=== PATIENT | male | born 1945 | race Caucasian/White ===

== ENCOUNTER → 2016-11-27 | Outpatient (REF) | payer OTHER ==
[~2016-11-27] MED LIST: /TAMS4CA PO; BACT800T5 PO; BENA25CA2 PO; CEPH500T PO; CIPR500T89 PO; CYCL1CAP2 PO; DEXA4TA PO; FE G325T PO; KEFL500C7 PO; MACR100C3 PO; MULTTAB4 PO; OCEA0.65; ONDA1TAB16 PO; PROC10TA PO; VITMTA PO; ferrous sulfate OR
[2016-11-27 13:20] LABS: IMMUNOGLOBULIN A 29.5 MG/DL (70-400); IMMUNOGLOBULIN G 472 MG/DL (681-1648); IMMUNOGLOBULIN M 328 MG/DL (40-230); TOTAL PROTEIN 6.2 GM/DL (6.4-8.2)
[2016-11-29 00:06] LABS: FREE KAPPA LIGHT CHAINS SERUM 8.11 mg/L (3.30-19.40); FREE LAMBDA LIGHT CHAINS SERUM 15.87 mg/L (5.71-26.30); KAPPA/LAMBDA RATIO SERUM 0.51 (0.26-1.65)
[2016-11-29 13:59] LABS: ALBUMIN 3.97 GM/DL (3.29-5.55); ALBUMIN % 64.1 % (55.8-66.1); GAMMA GLOBULIN % 8.9 % (11.1-18.8)
== END | disposition home or self-care (01) ==
LOC: M LAB REF 12:41
PROVIDERS: ATTEND Internal Medicine Medical Oncology
DX: C88.0 Waldenstrom macroglobulinemia (principal); D47.2 Monoclonal gammopathy; C85.90 Non-Hodgkin lymphoma, unspecified, unspecified site

== ENCOUNTER → 2017-01-03 | Outpatient (CLI) | payer OTHER ==
[2017-01-03 19:35] LABS: MEAN CORPUSCULAR HGB CONC 33.1 g/dl (32.0-36.5); MEAN CORPUSCULAR VOLUME 90.6 fl (80.0-96.0); RED CELL DISTRIBUTION WIDTH 13.3 % (11.5-14.5)
[2017-01-03 19:54] LABS: ANION GAP 7 MEQ/L (8-16); BLOOD UREA NITROGEN 12 MG/DL (7-18); CALCIUM LEVEL 8.8 MG/DL (8.8-10.2); CARBON DIOXIDE LEVEL 30 MEQ/L (21-32); CHLORIDE LEVEL 106 MEQ/L (98-107); CREATININE FOR GFR 0.87 MG/DL (0.70-1.30); GLOMERULAR FILTRATION RATE > 60.0 (>42); GLUCOSE, FASTING 123 MG/DL (83-110); POTASSIUM SERUM 4.5 MEQ/L (3.5-5.1); SODIUM LEVEL 143 MEQ/L (136-145)
== END | disposition home or self-care (01) ==
LOC: M SMT 14:55
PROVIDERS: ATTEND Urology
DX: Z85.51 Personal history of malignant neoplasm of bladder (principal)

== ENCOUNTER → 2017-01-15 | Outpatient (REF) | payer OTHER ==
[2017-01-15 13:52] LABS: IMMUNOGLOBULIN A 31.9 MG/DL (70-400); IMMUNOGLOBULIN G 513 MG/DL (681-1648); IMMUNOGLOBULIN M 333 MG/DL (40-230); TOTAL PROTEIN 6.6 GM/DL (6.4-8.2)
[2017-01-16 12:01] LABS: ALBUMIN % 62.9 % (55.8-66.1)
[2017-01-16 12:02] LABS: ALBUMIN 4.15 GM/DL (3.29-5.55); GAMMA GLOBULIN % 8.3 % (11.1-18.8)
[2017-01-17 00:07] LABS: FREE KAPPA LIGHT CHAINS SERUM 9.53 mg/L (3.30-19.40); FREE LAMBDA LIGHT CHAINS SERUM 18.03 mg/L (5.71-26.30); KAPPA/LAMBDA RATIO SERUM 0.53 (0.26-1.65)
== END ==
LOC: M LAB REF 12:32
PROVIDERS: ATTEND Internal Medicine Medical Oncology
DX: C88.0 Waldenstrom macroglobulinemia (principal); D63.0 Anemia in neoplastic disease

== ENCOUNTER → 2017-03-15 | Outpatient (REF) | payer OTHER | LOC: M LAB REF 12:22 | PROVIDERS: ATTEND Physician Assistant Medical | DX: J02.9 Acute pharyngitis, unspecified (principal) ==

== ENCOUNTER → 2017-04-18 | Outpatient (REF) | payer OTHER ==
[2017-04-18 15:11] LABS: IMMUNOGLOBULIN A 43.6 MG/DL (70-400); IMMUNOGLOBULIN G 768 MG/DL (681-1648); IMMUNOGLOBULIN M 318 MG/DL (40-230); TOTAL PROTEIN 7.3 GM/DL (6.4-8.2)
[2017-04-20 00:06] LABS: FREE KAPPA LIGHT CHAINS SERUM 11.85 mg/L (3.30-19.40); FREE LAMBDA LIGHT CHAINS SERUM 18.94 mg/L (5.71-26.30); KAPPA/LAMBDA RATIO SERUM 0.63 (0.26-1.65)
[2017-04-23 09:12] LABS: ALBUMIN 4.47 GM/DL (3.29-5.55); ALBUMIN % 61.3 % (55.8-66.1); GAMMA GLOBULIN % 11.6 % (11.1-18.8)
== END ==
LOC: M LAB REF 13:22
PROVIDERS: ATTEND Internal Medicine Medical Oncology
DX: C88.0 Waldenstrom macroglobulinemia (principal); C85.90 Non-Hodgkin lymphoma, unspecified, unspecified site; D47.2 Monoclonal gammopathy

== ENCOUNTER → 2017-04-30 | Outpatient (REF) | payer OTHER | LOC: M SFHCADAM 10:07 | PROVIDERS: ATTEND Physician Assistant Medical | DX: L02.91 Cutaneous abscess, unspecified (principal) ==

== ENCOUNTER → 2017-05-01 | Outpatient (CLI) | payer OTHER ==
[2017-05-01 13:47] LABS: ESTRADIOL < 19.0 PG/ML (<39.8)
[2017-05-01 15:37] LABS: ANION GAP 8 MEQ/L (8-16); BLOOD UREA NITROGEN 14 MG/DL (7-18); CALCIUM LEVEL 8.9 MG/DL (8.8-10.2); CARBON DIOXIDE LEVEL 27 MEQ/L (21-32); CHLORIDE LEVEL 105 MEQ/L (98-107); CREATININE FOR GFR 1.02 MG/DL (0.70-1.30); GLOMERULAR FILTRATION RATE > 60.0 (>42); GLUCOSE, FASTING 95 MG/DL (83-110); POTASSIUM SERUM 4.3 MEQ/L (3.5-5.1); SODIUM LEVEL 140 MEQ/L (136-145)
== END ==
LOC: M SMT 09:03
PROVIDERS: ATTEND Urology
DX: C61 Malignant neoplasm of prostate (principal)

== ENCOUNTER → 2017-07-23 | Outpatient (REF) | payer OTHER ==
[~2017-07-23] MED LIST changes: +KEFL500C17 PO; -KEFL500C7 PO; -MACR100C3 PO; +MACR100C43 PO; -ONDA1TAB16 PO; +ONDA8TAB7 PO
[2017-07-23 14:30] LABS: IMMUNOGLOBULIN A 42.3 MG/DL (70-400); IMMUNOGLOBULIN G 720 MG/DL (681-1648); IMMUNOGLOBULIN M 262 MG/DL (40-230); TOTAL PROTEIN 6.9 GM/DL (6.4-8.2)
[2017-07-24 13:20] LABS: ALBUMIN 4.35 GM/DL (3.29-5.55); GAMMA GLOBULIN % 12.3 % (11.1-18.8)
[2017-07-25 00:06] LABS: FREE KAPPA LIGHT CHAINS SERUM 7.9 mg/L (3.3-19.4); FREE LAMBDA LIGHT CHAINS SERUM 15.1 mg/L (5.7-26.3); KAPPA/LAMBDA RATIO SERUM 0.52 (0.26-1.65)
== END ==
LOC: M LAB REF 09:09
PROVIDERS: ATTEND Internal Medicine Medical Oncology
DX: C85.10 Unspecified B-cell lymphoma, unspecified site (principal); D47.2 Monoclonal gammopathy

== ENCOUNTER → 2017-08-07 | Outpatient (CLI) | payer OTHER ==
[2017-08-07 13:11] LABS: MEAN CORPUSCULAR HEMOGLOBIN 30.7 pg (27.0-33.0); MEAN CORPUSCULAR HGB CONC 35.7 g/dl (32.0-36.5); MEAN CORPUSCULAR VOLUME 86.1 fl (80.0-96.0); RED CELL DISTRIBUTION WIDTH 13.2 % (11.5-14.5); WHITE BLOOD COUNT 6.8 K/mm3 (4.0-10.0)
[2017-08-07 13:12] LABS: ANION GAP 5 MEQ/L (8-16); BLOOD UREA NITROGEN 11 MG/DL (7-18); CALCIUM LEVEL 8.7 MG/DL (8.8-10.2); CARBON DIOXIDE LEVEL 29 MEQ/L (21-32); CHLORIDE LEVEL 106 MEQ/L (98-107); CREATININE FOR GFR 0.94 MG/DL (0.70-1.30); GLOMERULAR FILTRATION RATE > 60.0 (>42); GLUCOSE, FASTING 103 MG/DL (83-110); POTASSIUM SERUM 4.2 MEQ/L (3.5-5.1); SODIUM LEVEL 140 MEQ/L (136-145)
== END ==
LOC: M SMT 10:44
PROVIDERS: ATTEND Urology
DX: C61 Malignant neoplasm of prostate (principal); Z85.51 Personal history of malignant neoplasm of bladder

== ENCOUNTER → 2017-08-22 | Outpatient (REF) | payer OTHER ==
[2017-08-22 12:56] LABS: BASO # 0.1 10^3/uL (0.0-0.2); BASO % 0.9 % (0.0-1.0); EOS # 0.3 10^3/uL (0.0-0.50); EOS % 4.1 % (0.0-3.0); IMMATURE GRANULOCYTE % 1.7 % (0-0); LYMPH # 1.9 10^3/uL (1.5-4.5); LYMPH % 27.2 % (24.0-44.0); MEAN CORPUSCULAR HEMOGLOBIN 29.1 pg (27.0-33.0); MEAN CORPUSCULAR HGB CONC 33.6 g/dl (32.0-36.5); MEAN CORPUSCULAR VOLUME 86.8 fl (80.0-96.0); MONO # 0.8 10^3/uL (0.0-0.8); MONO % 10.9 % (0.0-5.0); NEUTROPHILS # 3.9 10^3/uL (1.8-7.7); NEUTROPHILS % 55.2 % (36.0-66.0); PLATELET COUNT, AUTOMATED 228 10^3/uL (150-450); RED CELL DISTRIBUTION WIDTH 13.1 % (11.5-14.5)
[2017-08-22 14:11] LABS: ALBUMIN 3.8 GM/DL (3.2-5.2); ALBUMIN/GLOBULIN RATIO 1.41 (1.00-1.93); ALKALINE PHOSPHATASE 125 U/L (45-117); ALT/SGPT 45 U/L (12-78); ANION GAP 7 MEQ/L (8-16); AST/SGOT 20 U/L (15-37); BILIRUBIN,TOTAL 0.6 MG/DL (0.2-1.0); BLOOD UREA NITROGEN 16 MG/DL (7-18); CALCIUM LEVEL 9.3 MG/DL (8.8-10.2); CARBON DIOXIDE LEVEL 27 MEQ/L (21-32); CHLORIDE LEVEL 106 MEQ/L (98-107); CHOLESTEROL LEVEL 199 MG/DL (<200); CREATININE FOR GFR 1.06 MG/DL (0.70-1.30); GLOMERULAR FILTRATION RATE > 60.0 (>42); GLUCOSE, FASTING 101 MG/DL (83-110); POTASSIUM SERUM 4.7 MEQ/L (3.5-5.1); SODIUM LEVEL 140 MEQ/L (136-145); TOTAL PROTEIN 6.5 GM/DL (6.4-8.2); TRIGLYCERIDES LEVEL 173 MG/DL (<150)
== END ==
LOC: M SFHCADAM 08:03
PROVIDERS: ATTEND Physician Assistant Medical
DX: Z00.00 Encounter for general adult medical examination without abnormal findings (principal); C61 Malignant neoplasm of prostate; Z85.51 Personal history of malignant neoplasm of bladder; D50.9 Iron deficiency anemia, unspecified; Z20.5 Contact with and (suspected) exposure to viral hepatitis; Z79.899 Other long term (current) drug therapy

== ENCOUNTER → 2017-10-24 | Outpatient (REF) | payer OTHER ==
[2017-10-24 10:24] LABS: IMMUNOGLOBULIN A 46.6 MG/DL (70-400); IMMUNOGLOBULIN G 802 MG/DL (681-1648); IMMUNOGLOBULIN M 242 MG/DL (40-230); TOTAL PROTEIN 6.8 GM/DL (6.4-8.2)
[2017-10-26 00:08] LABS: FREE LAMBDA LIGHT CHAINS SERUM 15.9 mg/L (5.7-26.3); KAPPA/LAMBDA RATIO SERUM 0.63 (0.26-1.65)
[2017-10-28 13:54] LABS: ALBUMIN % 61.7 % (55.8-66.1)
[2017-10-28 13:55] LABS: GAMMA GLOBULIN % 12.5 % (11.1-18.8)
== END ==
LOC: M LAB REF 09:53
PROVIDERS: ATTEND Internal Medicine Medical Oncology
DX: D47.2 Monoclonal gammopathy (principal); C85.10 Unspecified B-cell lymphoma, unspecified site

== ENCOUNTER → 2017-11-13 | Outpatient (CLI) | payer OTHER ==
[2017-11-13 17:36] LABS: MEAN CORPUSCULAR HEMOGLOBIN 29.2 pg (27.0-33.0); MEAN CORPUSCULAR HGB CONC 33.4 g/dl (32.0-36.5); MEAN CORPUSCULAR VOLUME 87.4 fl (80.0-96.0); PLATELET COUNT, AUTOMATED 258 10^3/uL (150-450); WHITE BLOOD COUNT 7.6 10^3/uL (4.0-10.0)
[2017-11-13 18:08] LABS: ANION GAP 7 MEQ/L (8-16); BLOOD UREA NITROGEN 16 MG/DL (7-18); CALCIUM LEVEL 8.7 MG/DL (8.8-10.2); CARBON DIOXIDE LEVEL 29 MEQ/L (21-32); CHLORIDE LEVEL 105 MEQ/L (98-107); CREATININE FOR GFR 1.02 MG/DL (0.70-1.30); GLOMERULAR FILTRATION RATE > 60.0 (>42); GLUCOSE, FASTING 153 MG/DL (83-110); POTASSIUM SERUM 4.5 MEQ/L (3.5-5.1); SODIUM LEVEL 141 MEQ/L (136-145)
== END ==
LOC: M SMT 12:48
PROVIDERS: ATTEND Urology
DX: C61 Malignant neoplasm of prostate (principal); Z85.51 Personal history of malignant neoplasm of bladder

== ENCOUNTER → 2018-01-27 | Outpatient (REF) | payer OTHER ==
[2018-01-27 14:03] LABS: BASO # 0.1 10^3/uL (0.0-0.2); BASO % 1.1 % (0.0-1.0); EOS # 0.3 10^3/uL (0.0-0.50); EOS % 4.2 % (0.0-3.0); HEMATOCRIT 44.6 % (42.0-52.0); HEMOGLOBIN 14.9 g/dl (14.0-18.0); IMMATURE GRANULOCYTE % 1.4 % (0-3.0); LYMPH # 1.9 10^3/uL (1.5-4.5); LYMPH % 25.5 % (24.0-44.0); MEAN CORPUSCULAR HGB CONC 33.4 g/dl (32.0-36.5); MEAN CORPUSCULAR VOLUME 86.8 fl (80.0-96.0); MONO # 0.8 10^3/uL (0.0-0.8); MONO % 10.6 % (0.0-5.0); NEUTROPHILS # 4.4 10^3/uL (1.8-7.7); NEUTROPHILS % 57.2 % (36.0-66.0); PLATELET COUNT, AUTOMATED 218 10^3/uL (150-450); RED BLOOD COUNT 5.14 10^6/uL (4.30-6.10); RED CELL DISTRIBUTION WIDTH 13.2 % (11.5-14.5); WHITE BLOOD COUNT 7.6 10^3/uL (4.0-10.0)
[2018-01-27 14:41] LABS: ALBUMIN 3.8 GM/DL (3.2-5.2); ALBUMIN/GLOBULIN RATIO 1.23 (1.00-1.93); ALKALINE PHOSPHATASE 125 U/L (45-117); ALT/SGPT 35 U/L (12-78); ANION GAP 9 MEQ/L (8-16); AST/SGOT 17 U/L (7-37); BILIRUBIN,TOTAL 0.4 MG/DL (0.2-1.0); BLOOD UREA NITROGEN 12 MG/DL (7-18); CARBON DIOXIDE LEVEL 26 MEQ/L (21-32); CHLORIDE LEVEL 107 MEQ/L (98-107); CHOLESTEROL LEVEL 195 MG/DL (<200); CHOLESTEROL RISK RATIO 3.679 (<5); CREATININE FOR GFR 0.94 MG/DL (0.70-1.30); FERRITIN 17 NG/ML (26-388); GLOMERULAR FILTRATION RATE > 60.0 (>42); GLUCOSE, FASTING 97 MG/DL (70-100); HDL CHOLESTEROL 53 MG/DL (>40); IRON (FE) 61 UG/DL (65-175); LDL CHOLESTEROL 115.8 MG/DL (<100); NON-HDL-C 142 MG/DL; POTASSIUM SERUM 4.5 MEQ/L (3.5-5.1); PROSTATIC SPECIFIC AG MONITOR 0.01 NG/ML (< 4.0); SODIUM LEVEL 142 MEQ/L (136-145); TOTAL IRON BINDING CAPACITY 359 UG/DL (250-450); TOTAL PROTEIN 6.9 GM/DL (6.4-8.2); TRIGLYCERIDES LEVEL 131 MG/DL (<150)
[2018-01-27 14:42] LABS: TOTAL 25(OH) VITAMIN D 28.6 NG/ML (30.0-100.0)
== END ==
LOC: M SFHCADAM 08:18
DX: Z85.51 Personal history of malignant neoplasm of bladder (principal); Z86.010 Personal history of colon polyps; D50.9 Iron deficiency anemia, unspecified; C61 Malignant neoplasm of prostate; Z79.899 Other long term (current) drug therapy
CPT/HCPCS: 83550

== ENCOUNTER → 2018-02-06 | Outpatient (REF) | payer OTHER ==
[2018-02-06 14:30] LABS: IMMUNOGLOBULIN A 61.9 MG/DL (70-400); IMMUNOGLOBULIN G 735 MG/DL (681-1648); IMMUNOGLOBULIN M 244 MG/DL (40-230); TOTAL PROTEIN 7.1 GM/DL (6.4-8.2)
[2018-02-07 13:52] LABS: ALBUMIN 4.22 GM/DL (3.29-5.55); ALBUMIN % 59.4 % (55.8-66.1); ALPHA-1-GLOBULIN % 3.9 % (2.9-4.9); ALPHA-1-GLOBULINS 0.28 GM/DL (0.17-0.41); ALPHA-2-GLOBULINS 0.84 GM/DL (0.42-0.99); ALPHA-2-GLOBULINS % 11.8 % (7.1-11.8); BETA-1-GLOBULINS % 7.1 % (4.7-7.2); BETA-2-GLOBULINS 0.38 GM/DL (0.19-0.55); BETA-2-GLOBULINS % 5.4 % (3.2-6.5); GAMMA GLOBULIN % 12.4 % (11.1-18.8); GAMMA GLOBULINS 0.88 GM/DL (0.65-1.58)
[2018-02-08 00:06] LABS: FREE KAPPA LIGHT CHAINS SERUM 11.4 mg/L (3.3-19.4); FREE LAMBDA LIGHT CHAINS SERUM 16.1 mg/L (5.7-26.3); KAPPA/LAMBDA RATIO SERUM 0.71 (0.26-1.65)
== END ==
LOC: M LAB REF 13:43
DX: C80.0 Disseminated malignant neoplasm, unspecified (principal)
CPT/HCPCS: 84165

== ENCOUNTER 2018-04-11 07:26 | Day surgery (SDC) | payer OTHER ==
[2018-04-11] MEDS ORDERED: NS 1,000 ML IV (08:00)
[2018-04-11] MEDS ORDERED: PROPOFOL 200 MG/20 ML VIAL As Ordered ×2 (08:09)
[2018-04-11] MEDS ORDERED: LIDOCAINE 2% INJ 100 MG/5 ML SDV (FOR ANES.) As Ordered (08:10)
[2018-04-11] MEDS ORDERED: GLYCOPYRROLATE INJ 0.2 MG/ML 2 ML VIAL As Ordered (08:35)
[2018-04-11] MEDS ORDERED: ATROPINE SULF 0.4 MG/ML 1ML VIAL (J0461) As Ordered (08:37)
== END 2018-04-11 09:31 | disposition home or self-care (01) ==
LOC: M OPP 07:26
DX: Z12.11 Encounter for screening for malignant neoplasm of colon (principal); Z86.010 Personal history of colon polyps; D12.3 Benign neoplasm of transverse colon; D12.2 Benign neoplasm of ascending colon; K57.30 Diverticulosis of large intestine without perforation or abscess without bleeding; K64.8 Other hemorrhoids; Q43.8 Other specified congenital malformations of intestine; C85.10 Unspecified B-cell lymphoma, unspecified site; C90.00 Multiple myeloma not having achieved remission; Z85.51 Personal history of malignant neoplasm of bladder; Z86.14 Personal history of Methicillin resistant Staphylococcus aureus infection; N40.1 Benign prostatic hyperplasia with lower urinary tract symptoms; Z92.21 Personal history of antineoplastic chemotherapy; Z88.1 Allergy status to other antibiotic agents; Z88.0 Allergy status to penicillin
CPT/HCPCS: 45385

== ENCOUNTER → 2018-05-12 | Outpatient (CLI) | payer OTHER ==
[2018-05-12 13:03] LABS: HEMATOCRIT 43.7 % (42.0-52.0); HEMOGLOBIN 14.4 g/dl (13.5-17.5); MEAN CORPUSCULAR HEMOGLOBIN 28.6 pg (27.0-33.0); MEAN CORPUSCULAR VOLUME 86.7 fl (80.0-96.0); PLATELET COUNT, AUTOMATED 232 10^3/uL (150-450); RED BLOOD COUNT 5.04 10^6/uL (4.30-6.10); RED CELL DISTRIBUTION WIDTH 13.4 % (11.5-14.5); WHITE BLOOD COUNT 7.6 10^3/uL (4.0-10.0)
[2018-05-12 16:01] LABS: ANION GAP 7 MEQ/L (8-16); BLOOD UREA NITROGEN 15 MG/DL (7-18); CALCIUM LEVEL 9.2 MG/DL (8.8-10.2); CARBON DIOXIDE LEVEL 27 MEQ/L (21-32); CHLORIDE LEVEL 107 MEQ/L (98-107); CREATININE FOR GFR 0.95 MG/DL (0.70-1.30); GLOMERULAR FILTRATION RATE > 60.0 (>42); GLUCOSE, FASTING 103 MG/DL (70-100); POTASSIUM SERUM 4.8 MEQ/L (3.5-5.1); PROSTATIC SPECIFIC AG MONITOR < 0.01 NG/ML (< 4.0); SODIUM LEVEL 141 MEQ/L (136-145)
== END ==
LOC: M SMT 10:59
DX: Z85.51 Personal history of malignant neoplasm of bladder (principal); C61 Malignant neoplasm of prostate
CPT/HCPCS: 84153

== ENCOUNTER → 2018-06-02 | Outpatient (REF) | payer OTHER ==
[2018-06-02 14:32] LABS: IMMUNOGLOBULIN G 754 MG/DL (681-1648); IMMUNOGLOBULIN M 222 MG/DL (40-230); TOTAL PROTEIN 6.9 GM/DL (6.4-8.2)
[2018-06-03 11:40] LABS: ALBUMIN 4.28 GM/DL (3.29-5.55); ALPHA-1-GLOBULINS 0.23 GM/DL (0.17-0.41)
[2018-06-03 11:41] LABS: ALPHA-1-GLOBULIN % 3.4 % (2.9-4.9); ALPHA-2-GLOBULINS 0.73 GM/DL (0.42-0.99); ALPHA-2-GLOBULINS % 10.6 % (7.1-11.8); BETA-1-GLOBULINS 0.44 GM/DL (0.28-0.60); BETA-1-GLOBULINS % 6.4 % (4.7-7.2); BETA-2-GLOBULINS 0.35 GM/DL (0.19-0.55); GAMMA GLOBULIN % 12.6 % (11.1-18.8); GAMMA GLOBULINS 0.87 GM/DL (0.65-1.58)
[2018-06-04 00:08] LABS: FREE KAPPA LIGHT CHAINS SERUM 10.8 mg/L (3.3-19.4); FREE LAMBDA LIGHT CHAINS SERUM 14.4 mg/L (5.7-26.3); KAPPA/LAMBDA RATIO SERUM 0.75 (0.26-1.65)
== END ==
LOC: M LAB REF 13:39
DX: C88.0 Waldenstrom macroglobulinemia (principal)
CPT/HCPCS: 84165

== ENCOUNTER → 2018-08-09 | Outpatient (REF) | payer OTHER ==
[2018-08-09 11:07] LABS: BASO # 0.1 10^3/uL (0.0-0.2); BASO % 1.2 % (0.0-1.0); EOS # 0.4 10^3/uL (0.0-0.50); EOS % 4.7 % (0.0-3.0); IMMATURE GRANULOCYTE % 2.1 % (0-3.0); LYMPH # 1.8 10^3/uL (1.5-4.5); LYMPH % 24.4 % (24.0-44.0); MEAN CORPUSCULAR HGB CONC 33.3 g/dl (32.0-36.5); MEAN CORPUSCULAR VOLUME 86.9 fl (80.0-96.0); MONO # 0.6 10^3/uL (0.0-0.8); MONO % 7.6 % (0.0-5.0); NEUTROPHILS # 4.5 10^3/uL (1.8-7.7); PLATELET COUNT, AUTOMATED 221 10^3/uL (150-450); RED BLOOD COUNT 5.18 10^6/uL (4.30-6.10); RED CELL DISTRIBUTION WIDTH 13.2 % (11.5-14.5); WHITE BLOOD COUNT 7.5 10^3/uL (4.0-10.0)
[2018-08-09 11:21] LABS: ALBUMIN/GLOBULIN RATIO 1.29 (1.00-1.93); ALKALINE PHOSPHATASE 127 U/L (45-117); ALT/SGPT 42 U/L (12-78); ANION GAP 9 MEQ/L (8-16); AST/SGOT 18 U/L (7-37); BILIRUBIN,TOTAL 0.5 MG/DL (0.2-1.0); BLOOD UREA NITROGEN 13 MG/DL (7-18); CALCIUM LEVEL 9.3 MG/DL (8.8-10.2); CARBON DIOXIDE LEVEL 25 MEQ/L (21-32); CHLORIDE LEVEL 106 MEQ/L (98-107); CHOLESTEROL LEVEL 194 MG/DL (<200); CHOLESTEROL RISK RATIO 3.803 (<5); CREATININE FOR GFR 1.18 MG/DL (0.70-1.30); FERRITIN 17 NG/ML (26-388); GLOMERULAR FILTRATION RATE > 60.0 (>42); GLUCOSE, FASTING 132 MG/DL (70-100); HDL CHOLESTEROL 51 MG/DL (>40); IRON (FE) 139 UG/DL (65-175); LDL CHOLESTEROL 104 MG/DL (<100); NON-HDL-C 143 MG/DL; PERCENT SATURATION 38.5 % (19.7-50.0); POTASSIUM SERUM 4.6 MEQ/L (3.5-5.1); PROSTATIC SPECIFIC AG MONITOR 0.02 NG/ML (< 4.0); SODIUM LEVEL 140 MEQ/L (136-145); TOTAL IRON BINDING CAPACITY 361 UG/DL (250-450); TOTAL PROTEIN 7.1 GM/DL (6.4-8.2); TRIGLYCERIDES LEVEL 196 MG/DL (<150)
== END ==
LOC: M SFHCADAM 08:40
DX: D50.9 Iron deficiency anemia, unspecified (principal); Z85.51 Personal history of malignant neoplasm of bladder; Z86.010 Personal history of colon polyps; C61 Malignant neoplasm of prostate
CPT/HCPCS: 83550

== ENCOUNTER → 2018-11-17 | Outpatient (CLI) | payer OTHER ==
[~2018-11-17] MED LIST changes: +CLAR10CA3 PO; -PROC10TA PO; +PROC10TA4 PO
[2018-11-17 10:17] LABS: HEMATOCRIT 44.1 % (42.0-52.0); HEMOGLOBIN 14.9 g/dl (13.5-17.5); MEAN CORPUSCULAR HEMOGLOBIN 29.4 pg (27.0-33.0); MEAN CORPUSCULAR HGB CONC 33.8 g/dl (32.0-36.5); MEAN CORPUSCULAR VOLUME 87.2 fl (80.0-96.0); PLATELET COUNT, AUTOMATED 253 10^3/uL (150-450); RED BLOOD COUNT 5.06 10^6/uL (4.30-6.10); WHITE BLOOD COUNT 9.1 10^3/uL (4.0-10.0)
[2018-11-17 10:43] LABS: BLOOD UREA NITROGEN 15 MG/DL (7-18); CALCIUM LEVEL 8.8 MG/DL (8.8-10.2); CARBON DIOXIDE LEVEL 29 MEQ/L (21-32); CHLORIDE LEVEL 106 MEQ/L (98-107); CREATININE FOR GFR 1.05 MG/DL (0.70-1.30); GLOMERULAR FILTRATION RATE > 60.0 (>42); GLUCOSE, FASTING 113 MG/DL (70-100); POTASSIUM SERUM 4.2 MEQ/L (3.5-5.1); PROSTATIC SPECIFIC AG MONITOR 0.02 NG/ML (< 4.00); SODIUM LEVEL 140 MEQ/L (136-145)
== END ==
LOC: M LAB 09:46
PROVIDERS: ATTEND Nurse Practitioner Women's Health
DX: C61 Malignant neoplasm of prostate (principal); Z85.51 Personal history of malignant neoplasm of bladder

== ENCOUNTER → 2018-11-20 | Outpatient (REF) | payer OTHER ==
[2018-11-20 13:09] LABS: AMORPHOUS SEDIMENT MODERATE (NEGATIVE); APPEARANCE, URINE CLOUDY (CLEAR); BACTERIA, URINE AUTO 1+ (NEGATIVE); BILIRUBIN, URINE AUTO NEGATIVE (NEGATIVE); BLOOD, URINE BLOOD 2+ (NEGATIVE); COLOR, URINE YELLOW (YELLOW); GLUCOSE, URINE (UA) AUTO NEGATIVE (NEGATIVE); KETONE, URINE AUTO NEGATIVE (NEGATIVE); LEUKOCYTE ESTERASE, URINE AUTO 3+ (NEGATIVE); NITRITE, URINE AUTO POSITIVE (NEGATIVE); PROTEIN, URINE AUTO NEGATIVE (NEGATIVE); RBC, URINE AUTO 3 /HPF (0-3); SPECIFIC GRAVITY URINE AUTO 1.009 (1.002-1.035); SQUAMOUS EPITHELIAL CELL UR AU 1 /HPF (0-6); UROBILINOGEN, URINE AUTO 0.2 mg/dL (0.0-2.0); WBC, URINE AUTO 21 /HPF (0-3)
== END ==
LOC: M SMT 12:19
PROVIDERS: ATTEND Nurse Practitioner Women's Health
DX: Z85.51 Personal history of malignant neoplasm of bladder (principal)
CPT/HCPCS: 81001; 88108; G0463

== ENCOUNTER 2019-05-18 15:25 | Inpatient (IN) | payer MEDICARE, OTHER ==
[~2019-05-18] VITALS: Ht 182.9 cm; Wt 89.2 kg
[~2019-05-18 15:25] MED LIST changes: -/TAMS4CA PO; +FLOM0.4C39 PO
[2019-05-18] MEDS ORDERED: NS 1,000 ML IV SCH (16:15)
[2019-05-18] MEDS ORDERED: ONDANSETRON 4MG/2ML VIAL (J2405) IV ONE (16:15)
[2019-05-18] MEDS: MORPHINE 4 MG/ML 1ML VIAL/SYRINGE (J2270) IV PRN ×2 (17:09→18:56)
[2019-05-18] MEDS: GASTROGRAFIN SOLUTION 30ML PO SCH ×2 (17:09→17:13)
[2019-05-18 17:53] LABS: BASO # 0.1 10^3/uL (0.0-0.2); BASO % 0.2 % (0.0-1.0); HEMATOCRIT 44.6 % (42.0-52.0); HEMOGLOBIN 15.2 g/dl (13.5-17.5); LYMPH # 0.8 10^3/uL (1.5-4.5); LYMPH % 3.5 % (24.0-44.0); MEAN CORPUSCULAR HEMOGLOBIN 30.1 pg (27.0-33.0); MEAN CORPUSCULAR HGB CONC 34.1 g/dl (32.0-36.5); MEAN CORPUSCULAR VOLUME 88.3 fl (80.0-96.0); MONO # 1.3 10^3/uL (0.0-0.8); MONO % 6.1 % (0.0-5.0); NEUTROPHILS # 18.9 10^3/uL (1.8-7.7); NEUTROPHILS % 89.6 % (36.0-66.0); PLATELET COUNT, AUTOMATED 220 10^3/uL (150-450); RED BLOOD COUNT 5.05 10^6/uL (4.30-6.10); WHITE BLOOD COUNT 21.2 10^3/uL (4.0-10.0)
[2019-05-18] MEDS ORDERED: ISOVUE-370 76% 100ML VIAL (Q9967) As Ordered ONE (17:55)
[2019-05-18 18:16] LABS: ALBUMIN 3.7 GM/DL (3.2-5.2); BILIRUBIN,DIRECT 0.1 MG/DL (0.0-0.2); BILIRUBIN,TOTAL 0.6 MG/DL (0.2-1.0); TOTAL PROTEIN 7.8 GM/DL (6.4-8.2)
[2019-05-18] MEDS ORDERED: metroNIDAZOLE 500 MG in APPROPRIATE DILUENT 1 EA IV ONE (18:45)
[2019-05-18] MEDS ORDERED: cefTRIAXone SOD 1 GM in D5W MINI-BAG PLUS 50 ML IV ONE (18:45)
--- NOTE | 2019-05-18 19:04 | REP ---
Clinical: Acute right lower quadrant pain. Technique: Axial contrast enhanced images from the lung bases to the pubic symphysis using oral (per protocol) and 100 ml Isovue 370 intravenous contrast material with coronal and sagittal re-formations. Comparison: 06/27/2016. Findings: The gallbladder appears distended and mild pericholecystic fluid is appreciated along with evidence for mild biliary ductal dilatation. Findings are consistent with acute cholecystitis and should be correlated clinically. Liver, spleen, pancreas, and bilateral adrenal glands are normal. The kidneys are without evidence for acute process. The patient is noted to be status post bladder resection with ileal conduit via the right anterior abdominal wall and no associated hydronephrosis or perinephric stranding is appreciated. Evaluation of the enteric system is without obstruction or acute inflammatory process. Scattered colonic diverticula noted without acute diverticulitis. Normal appendix identified in the right lower quadrant. No pelvic fluid. No ascites. No free air. No significant adenopathy. Abdominal aorta without aneurysm or dissection. Osseous structures demonstrate age-related changes without focal abnormality. Lung bases suggest mild bibasilar atelectasis. Visualized heart and pericardium normal. Small hiatal hernia at the gastroesophageal junction is appreciated along with mild mucosal thickening to the visualized distal esophagus which may warrant endoscopy. Impression: 1. Acute cholecystitis is suggested including mild biliary ductal dilatation and pericholecystic inflammatory stranding. 2. Evidence of prior bladder resection with ileal conduit and no obvious acute renal findings. 3. Mild bibasilar atelectasis. 4. Small hiatal hernia and mild thickening to the visualized distal esophagus may warrant outpatient GI consultation. 5. Scattered colonic diverticula. Normal appendix. 6. No ascites, or adenopathy. Electronically Signed by Srikanth Curtis MD 05/18/2019 06:55 P
[2019-05-18] MEDS ORDERED: ERTAPENEM SODIUM 1 GM in NS MINI-BAG PLUS 50 ML IV ONE (19:15)
[2019-05-18] MEDS ORDERED: ACETAMINOPHEN TAB 650MG DOSE (2X325MG) PO PRN (22:30)
[2019-05-18] MEDS ORDERED: ONDANSETRON 4MG/2ML VIAL (J2405) IV PRN (22:30)
[2019-05-18] MEDS ORDERED: MORPHINE 4 MG/ML 1ML VIAL/SYRINGE (J2270) IV PRN (22:30)
[2019-05-19] VITALS (10 sets, daily range): BP systolic 114–163; BP diastolic 53–73; O2SAT 96
[2019-05-19] MEDS: LR 1,000 ML IV SCH ×2 (00:13→06:17)
[2019-05-19] MEDS: MORPHINE 4 MG/ML 1ML VIAL/SYRINGE (J2270) IV PRN ×2 (00:31→06:17)
[2019-05-19] MEDS: metroNIDAZOLE 500 MG in APPROPRIATE DILUENT 1 EA IV SCH ×4 (00:32→18:03)
--- NOTE | 2019-05-19 05:25 | HPE ---
DATE OF ADMISSION: 05/18/2019 REASON FOR ADMISSION: Acute cholecystitis and cholelithiasis. HISTORY OF PRESENT ILLNESS: The patient is a pleasant 73-year-old man who presented to the emergency department on the afternoon of May 18 complaining of abdominal pain. He reported that he had developed some discomfort in the epigastrium at about 6 o'clock in the morning on the . He has a known history of gallstones. His discomfort worsened during the course of the morning and became quite severe in the right subcostal area and he denied any significant nausea. He reported that he had known gallstones for some years which had been discovered incidentally while doing work up for his bladder cancer. He reports a strong family history of cholelithiasis and problems with several members of his family having had a cholecystectomy. He presented to the emergency department with his pain and was found to have some tenderness in the right lateral abdomen. Initially the emergency room (ER) physician reported that he was thinking more along the lines of appendicitis but a CT scan was obtained that showed marked inflammation and distension of the gallbladder. I was consulted and the patient is now being admitted for cholelithiasis with acute cholecystitis. ALLERGIES: Allergies are reported to PENICILLINS which lead to face swelling and CIPROFLOXACIN which leads to rash and itching. MEDICATIONS: The patient only is taking: - Claritin - multivitamin. PAST SURGICAL HISTORY: The patient has undergone bilateral inguinal hernia repairs many years ago. He had undergone several limited resections of bladder cancer cystoscopically. He subsequently underwent a cystectomy with the prostate in 2016. This was done robotically by Dr. Rivera. PAST MEDICAL HISTORY: Significant for: 1. History of cystoprostatectomy for bladder cancer. 2. He has a ileal conduit for urinary diversion. 3. He reports a history of malignant lymphoma that was diagnosed some six months after his bladder excision in 2016. FAMILY HISTORY: Family history is significant only for the multiple family members with history of gallstones. SOCIAL HISTORY: The patient is not smoking and denies significant alcohol intake. REVIEW OF SYSTEMS: Review of systems shows no history of chest pain or palpitations. He denies cough or wheezing. He has not had diarrhea or constipation and denies any history of bleeding. The ileal conduit has been working well. PHYSICAL EXAMINATION: The patient is alert and oriented. He was lying quietly on his side on the hospital stretcher when I went to see him. HEENT: Sclerae are anicteric. Skin: Skin is warm and dry. Mucous membranes are moist. Neck: Supple. Heart: Exam shows a regular rhythm. Lungs: The lungs are generally clear. Abdomen: He has a ileal conduit ending in the right upper quadrant and the bag contains a moderate amount of urine. The abdomen is mildly obese. He has some tenderness along the right subcostal area between the rib edge and the urostomy site. Extremities: Examination shows palpable radial and pedal pulses. LABORATORY STUDIES: White count of 21,000 with a differential showing 90% neutrophils, 4% lymphocytes and 6% monocytes. Hemoglobin 15 with a hematocrit of 45 and platelet count is 220,000. Chemistry profile showed a lactic acid 2.1. Sodium was 138, potassium 3.9, chloride 101, CO2 of 23, BUN of 11, creatinine 0.9 and a glucose of 139. His liver function tests are normal. The lipase that is low at 61. IMAGING STUDIES: The patient had a CT scan of the abdomen and pelvis. This revealed a distended gallbladder with some pericholecystic fluid and gallbladder wall thickening. He has his ileal conduit noted in the right upper quadrant with absence of the bladder and prostate. IMPRESSION: 1. Cholelithiasis with acute cholecystitis. 2. Status post cystoprostatectomy. PLAN: The patient will be admitted and started on antibiotic coverage. He will require urgent cholecystectomy and I will anticipate adding him onto the schedule for tomorrow May 19. He will be kept nothing by mouth for now and will receive some IV fluids. He was counseled regarding the plan of care and desires to proceed as I have outlined it.
[2019-05-19 06:53] LABS: BASO # 0.1 10^3/uL (0.0-0.2); BASO % 0.2 % (0.0-1.0); HEMATOCRIT 39.5 % (42.0-52.0); HEMOGLOBIN 13.4 g/dl (13.5-17.5); LYMPH # 1.1 10^3/uL (1.5-4.5); LYMPH % 5.3 % (24.0-44.0); MEAN CORPUSCULAR HEMOGLOBIN 29.6 pg (27.0-33.0); MEAN CORPUSCULAR HGB CONC 33.9 g/dl (32.0-36.5); MEAN CORPUSCULAR VOLUME 87.4 fl (80.0-96.0); MONO # 1.5 10^3/uL (0.0-0.8); MONO % 7.3 % (0.0-5.0); NEUTROPHILS # 18.1 10^3/uL (1.8-7.7); NEUTROPHILS % 86.3 % (36.0-66.0); PLATELET COUNT, AUTOMATED 211 10^3/uL (150-450); RED BLOOD COUNT 4.52 10^6/uL (4.30-6.10)
[2019-05-19] MEDS ORDERED: dexameTHASONE 4 MG/ML 1ML VIAL (J1100) As Ordered ONE (07:13)
[2019-05-19] MEDS ORDERED: LIDOCAINE 2% INJ 100 MG/5 ML SDV (FOR ANES.) As Ordered ONE (07:13)
[2019-05-19] MEDS ORDERED: ONDANSETRON 4MG/2ML VIAL (J2405) As Ordered ONE (07:13)
[2019-05-19] MEDS ORDERED: PROPOFOL 200 MG/20 ML VIAL As Ordered ONE (07:13)
[2019-05-19] MEDS ORDERED: ROCURONIUM BROMIDE 50 MG/5 ML VIAL As Ordered ONE (07:14)
[2019-05-19] MEDS ORDERED: MIDAZOLAM INJ 2 MG/2 ML VIAL (J2250) As Ordered ONE (07:16)
[2019-05-19] MEDS ORDERED: fentaNYL 100 MCG/2 ML INJECTION (J3010) As Ordered ONE ×3 (07:16→10:07)
[2019-05-19] MEDS ORDERED: BUPIVACAINE HCL 0.25% 30 ML VIAL As Ordered ONE (07:19)
[2019-05-19 07:21] LABS: ALT/SGPT 41 U/L (12-78); BILIRUBIN,TOTAL 0.7 MG/DL (0.2-1.0); BLOOD UREA NITROGEN 15 MG/DL (7-18); CALCIUM LEVEL 8.8 MG/DL (8.8-10.2); CARBON DIOXIDE LEVEL 26 MEQ/L (21-32); CHLORIDE LEVEL 107 MEQ/L (98-107); CREATININE FOR GFR 1.09 MG/DL (0.70-1.30); GLOMERULAR FILTRATION RATE > 60.0 (>42); GLUCOSE, FASTING 154 MG/DL (70-100); POTASSIUM SERUM 3.9 MEQ/L (3.5-5.1); SODIUM LEVEL 139 MEQ/L (136-145); TOTAL PROTEIN 6.7 GM/DL (6.4-8.2)
[2019-05-19] MEDS ORDERED: KETOROLAC 60 MG/2 ML VIAL (J1885) As Ordered ONE (07:47)
[2019-05-19] MEDS ORDERED: PANTOPRAZOLE 40MG INJ (PROTONIX) (C9113) IV SCH (09:00)
[2019-05-19] MEDS ORDERED: hydrALAZINE INJ 20 MG/ML VIAL As Ordered ONE (09:38)
[2019-05-19] MEDS ORDERED: SUGAMMADEX SODIUM 500 MG/5 ML VIAL (BRIDION) As Ordered ONE (10:04)
[2019-05-19] MEDS ORDERED: ACETAMINOPHEN 1000MG 100ML IV BTL (OFIRMEV) (J0131 PER 10MG) As Ordered ONE (10:22)
[2019-05-19] MEDS ORDERED: fentaNYL 100 MCG/2 ML INJECTION (J3010) IV PRN (11:30)
[2019-05-19] MEDS ORDERED: MEPERIDINE INJ 25 MG/ML VIAL (J2175) IV PRN (11:30)
[2019-05-19] MEDS ORDERED: PERCOCET 5MG/325MG TAB PO PRN (11:30)
[2019-05-19] MEDS ORDERED: METOCLOPRAMIDE INJ 10MG/2ML VIAL (J2765) IV PRN (11:30)
[2019-05-19] MEDS ORDERED: LR 1,000 ML IV SCH ×2 (11:30→14:30)
[2019-05-19] MEDS ORDERED: ONDANSETRON 4MG/2ML VIAL (J2405) IV PRN (11:30)
[2019-05-19] MEDS ORDERED: ALBUTEROL SULFATE 2.5 MG/0.5 ML INH NEB SOLN As Ordered ONE (11:59)
[2019-05-19] MEDS ORDERED: NORCO, ANEXSIA 5/325MG TABLET (HYDROcodone/ACETAMINOPHEN) PO PRN (12:00)
[2019-05-19] MEDS ORDERED: LORATADINE 10 MG TAB PO PRN (12:00)
[2019-05-19] MEDS ORDERED: ALBUTEROL SULFATE 2.5 MG/0.5 ML INH NEB SOLN NEB ONE (12:30)
[2019-05-19] MEDS ORDERED: IPRATROPIUM 0.5MG/ALBUTEROL 2.5MG INH SOL UD 3ML (DUONEB)(J7620) NEB ONE (12:30)
[2019-05-19] MEDS ORDERED: METOCLOPRAMIDE INJ 10MG/2ML VIAL (J2765) As Ordered ONE (13:42)
[2019-05-19] MEDS ORDERED: ERTAPENEM SODIUM 1 GM in NS MINI-BAG PLUS 50 ML IV SCH (20:00)
[2019-05-19] MEDS ORDERED: MULTIVITAMINS/MINERALS THERAP 1 TAB PO SCH (21:00)
[2019-05-20] MEDS: metroNIDAZOLE 500 MG in APPROPRIATE DILUENT 1 EA IV SCH ×2 (00:13→06:02)
[2019-05-20 02:00] VITALS: BP 126/58
[2019-05-20 06:00] VITALS: BP 141/66
[2019-05-20 06:51] LABS: BASO % 0.2 % (0.0-1.0); EOS % 0.1 % (0.0-3.0); HEMATOCRIT 35.4 % (42.0-52.0); HEMOGLOBIN 11.6 g/dl (13.5-17.5); LYMPH % 7.6 % (24.0-44.0); MEAN CORPUSCULAR HEMOGLOBIN 28.8 pg (27.0-33.0); MEAN CORPUSCULAR HGB CONC 32.8 g/dl (32.0-36.5); MEAN CORPUSCULAR VOLUME 87.8 fl (80.0-96.0); MONO # 0.8 10^3/uL (0.0-0.8); MONO % 6.1 % (0.0-5.0); NEUTROPHILS # 11.1 10^3/uL (1.8-7.7); NEUTROPHILS % 85.2 % (36.0-66.0); PLATELET COUNT, AUTOMATED 176 10^3/uL (150-450); RED BLOOD COUNT 4.03 10^6/uL (4.30-6.10)
[2019-05-20 07:12] LABS: BLOOD UREA NITROGEN 19 MG/DL (7-18); CALCIUM LEVEL 8.3 MG/DL (8.8-10.2); CARBON DIOXIDE LEVEL 29 MEQ/L (21-32); CHLORIDE LEVEL 108 MEQ/L (98-107); CREATININE FOR GFR 1.11 MG/DL (0.70-1.30); GLOMERULAR FILTRATION RATE > 60.0 (>42); GLUCOSE, FASTING 127 MG/DL (70-100); POTASSIUM SERUM 3.7 MEQ/L (3.5-5.1); SODIUM LEVEL 141 MEQ/L (136-145)
[2019-05-20] MEDS ORDERED: HYDR-4571 PO (08:50)
[2019-05-20] MEDS ORDERED: CLIN150C14 PO (08:50)
--- NOTE | 2019-05-21 08:23 | IPN ---
DATE: 05/20/2019 HISTORY: The patient is now postop day postop day #1 from laparoscopic cholecystectomy for severe acute cholecystitis. A Lalo drain was left in the gallbladder bed postop. He has been feeling much better since surgery. Vital signs show that he has been afebrile since surgery. His pulse is in the 60s to 80s. Blood pressure is normal. Intake and output show that he had 2100 mL in yesterday with 925 out. He had 55 mL out in his drain and 40 mL out this morning. PHYSICAL EXAMINATION: The patient is alert and oriented. He appears quite comfortable. Skin is warm and dry. Heart exam shows a regular rhythm. The lungs are clear. The abdomen is soft. His dressings are dry and intact. The drain site is clean with a small amount of serosanguineous fluid in the tubing and bulb. His urostomy is functioning well. The abdomen is without undue tenderness. LABORATORY STUDIES: Today show a white count which is come down to 13,000 with a differential showing 85% neutrophils, 8% lymphocytes, 6% monocytes. Hemoglobin is 12 with a hematocrit of 35 and platelet count is 176,000. Chemistry profile shows normal electrolytes with a BUN of 19, creatinine of 1.1 and glucose of 127. Microbiology: He has a preliminary blood culture from his evaluation in the emergency department, which is growing gram-positive cocci in pairs, chains and clusters. Further identification and antibiotic testing is pending. IMPRESSION: The patient is doing very well 1 day postop from his laparoscopic cholecystectomy. His drain has minimal serosanguineous fluid. He is feeling quite comfortable and has taken only one prescription pain reliever since surgery. He does have a preliminary blood culture from the growing gram-positive cocci but has been afebrile and has no obvious signs of infection at this time. PLAN: The patient will be discharged home. He will be provided a prescription for an antibiotic to take another 5-7 days after discharge just to address the potentially positive blood culture. He will take the drain home with him and he understands how to empty this and measure the output. I will plan on having him follow up in my office on Saturday the for removal of his drain and he will then follow up later in 10 days or so for a routine postop visit. He was counseled regarding diet, activity, medications and followup. He understands the plan will be discharge home today.
--- NOTE | 2019-05-21 23:14 | RO ---
DATE OF PROCEDURE: 05/19/2019 PREOPERATIVE DIAGNOSIS: Cholelithiasis with acute cholecystitis. POSTOPERATIVE DIAGNOSIS: Cholelithiasis with acute and possibly gangrenous cholecystitis. PROCEDURE PERFORMED: Laparoscopic cholecystectomy with lysis of adhesions. SURGEON: Dr. Elie Trotter FLOUR DISTRIBUTOR: NORA Bui ANESTHESIA: General. INDICATIONS FOR PROCEDURE The patient is a 73-year-old man with known gallstones who presented to the emergency department with a fairly short history of severe upper abdominal pain. He was found to have a markedly elevated white blood cell count with marked tenderness in the right upper quadrant. A CT scan showed inflammatory changes consistent with acute cholecystitis. He was admitted and placed on antibiotics and is now for a laparoscopic cholecystectomy. The approach will be modified because he has an ileal conduit, status post a complete cystectomy some years ago, which is located in the right midabdomen. OPERATIVE PROCEDURE The patient was brought to the operating room and placed on the table in a supine position. He was placed under general endotracheal anesthesia. His urostomy appliance was left in place and the bag was rotated to hang off the patients right flank. The patient's abdomen was prepped and draped in a sterile fashion. The urostomy bag was draped out of the field with a Steri-Drape and Ioban drape. 0.25% Marcaine was infiltrated at the trocar sites. A short incision in the left upper quadrant was made and a Veress needle was inserted. After a positive hanging drop test, the abdomen was insufflated with carbon dioxide gas without difficulty. A 5-mm port was placed over the scope and advanced through the abdominal wall without difficulty. The patient was noted to have some adhesions of the omentum to the anterior abdominal wall medial to his urostomy. A small amount of greenish-yellow exudate was noted in the right upper quadrant along the edge of the liver. A second 5 mm trocar was placed in the left upper quadrant slightly to the left of the midline. The adhesions to the anterior abdominal wall were lysed using a combination of cautery and sharp dissection. As the gallbladder was better exposed, it was clear that the gallbladder was quite inflamed with exudate. Two additional ports were placed on the right side of the abdomen medial to his ileal conduit. The patient was tilted to a reverse Trendelenburg position and rolled slightly to the left. The gallbladder was encased in some surrounding omentum and there were some adhesions to the gallbladder. As these were lysed and the gallbladder was better exposed, there were patches of exudate on the body and neck of the gallbladder and areas that appeared consistent with small areas of gangrene. The gallbladder was tensely distended and so was aspirated with a aspirating needle. This facilitated grasping the gallbladder for elevation and exposure. Brianna Swan was instrumental in helping to provide exposure of the gallbladder and elevation with management of the retraction. The gallbladder was exposed by peeling away the surrounding omentum. The pericholecystic fibrofatty tissue was opened at the neck of the gallbladder. With careful dissection, the cystic duct and the cholecystic artery were both exposed. These were both doubly clipped with hemoclips and divided. The gallbladder was then dissected free from the gallbladder bed using cautery dissection. The gallbladder was not perforated in the course of dissection. The gallbladder was placed in an Endopouch. The right upper quadrant was then irrigated. Because of the extensive inflammation, I elected to place a drain in the gallbladder bed. Therefore a #19-Peruvian drain was inserted through one of the trocar sites and this was advanced out the right midabdominal trocar site. The drain was placed across the subhepatic space. The gallbladder had been placed in an Endopouch. The abdomen was then deflated with the patient returned to a flat position. The drain was sutured to the skin with #2-0 silk. The gallbladder was recovered through the left mid abdominal trocar site by making a small longitudinal incision and using a muscle-splitting approach through the rectus muscle to open the rectus fascia and deliver the gallbladder. There were multiple stones palpable within the gallbladder. This was sent for permanent pathology. The wound was then closed in layers closing the posterior fascia and the anterior fascia with Vicryl. The skin incisions were all closed with buried Vicryl sutures and Steri-Strips. Light dressings were applied. The patient tolerated the procedure well without apparent complication. He was awakened in the operating room, extubated and moved to the recovery room in stable condition.
== END 2019-05-20 10:30 | disposition home or self-care (01) | DRG 419 ==
LOC: M ED 15:25 → M ED INP 22:18 → M MS5PR 05-19
PROVIDERS: ADMIT Surgery; ATTEND Surgery
PROC: 0FT44ZZ Resection of Gallbladder, Percutaneous Endoscopic Approach (ICD-10-PCS; principal; 2019-05-19 07:30)
DX: K80.00 Calculus of gallbladder with acute cholecystitis without obstruction (principal); Z88.0 Allergy status to penicillin; Z85.51 Personal history of malignant neoplasm of bladder

== ENCOUNTER → 2019-05-25 | Outpatient (CLI) | payer MEDICARE ==
[~2019-05-25] MED LIST changes: +CLIN150C14 PO; +HYDR-4571 PO
[2019-05-25 19:01] LABS: HEMATOCRIT 45.5 % (42.0-52.0); HEMOGLOBIN 14.7 g/dl (13.5-17.5); MEAN CORPUSCULAR HEMOGLOBIN 29.3 pg (27.0-33.0); MEAN CORPUSCULAR HGB CONC 32.3 g/dl (32.0-36.5); MEAN CORPUSCULAR VOLUME 90.6 fl (80.0-96.0); PLATELET COUNT, AUTOMATED 311 10^3/uL (150-450); RED BLOOD COUNT 5.02 10^6/uL (4.30-6.10); WHITE BLOOD COUNT 10.8 10^3/uL (4.0-10.0)
[2019-05-25 19:12] LABS: BLOOD UREA NITROGEN 15 MG/DL (7-18); CALCIUM LEVEL 8.9 MG/DL (8.8-10.2); CARBON DIOXIDE LEVEL 28 MEQ/L (21-32); CHLORIDE LEVEL 107 MEQ/L (98-107); CREATININE FOR GFR 1.03 MG/DL (0.70-1.30); GLOMERULAR FILTRATION RATE > 60.0 (>42); GLUCOSE, FASTING 121 MG/DL (70-100); POTASSIUM SERUM 4.9 MEQ/L (3.5-5.1); PROSTATIC SPECIFIC AG MONITOR 0.02 NG/ML (< 4.00); SODIUM LEVEL 141 MEQ/L (136-145)
[2019-05-25 19:19] LABS: AMORPHOUS SEDIMENT MODERATE (NEGATIVE); APPEARANCE, URINE TURBID (CLEAR); BACTERIA, URINE AUTO 1+ (NEGATIVE); BILIRUBIN, URINE AUTO NEGATIVE (NEGATIVE); BLOOD, URINE BLOOD 2+ (NEGATIVE); COLOR, URINE AMBER (YELLOW); GLUCOSE, URINE (UA) AUTO NEGATIVE (NEGATIVE); KETONE, URINE AUTO NEGATIVE (NEGATIVE); LEUKOCYTE ESTERASE, URINE AUTO 2+ (NEGATIVE); MUCUS, URINE SMALL (NEGATIVE); NITRITE, URINE AUTO POSITIVE (NEGATIVE); PROTEIN, URINE AUTO NEGATIVE (NEGATIVE); RBC, URINE AUTO 8 /HPF (0-3); SPECIFIC GRAVITY URINE AUTO 1.018 (1.002-1.035); SQUAMOUS EPITHELIAL CELL UR AU 0 /HPF (0-6); UROBILINOGEN, URINE AUTO 0.2 mg/dL (0.0-2.0); WBC, URINE AUTO 26 /HPF (0-3)
== END ==
LOC: M SMT 11:19
PROVIDERS: ATTEND Nurse Practitioner Women's Health
DX: Z85.51 Personal history of malignant neoplasm of bladder (principal); C61 Malignant neoplasm of prostate

== ENCOUNTER → 2019-08-10 | Outpatient (REF) | payer MEDICARE ==
[~2019-08-10] MED LIST changes: +ONDA8TAB10 PO; -ONDA8TAB7 PO
[2019-08-10 12:41] LABS: HEMATOCRIT 45.8 % (42.0-52.0); HEMOGLOBIN 14.9 g/dl (13.5-17.5); MEAN CORPUSCULAR HEMOGLOBIN 29.4 pg (27.0-33.0); MEAN CORPUSCULAR HGB CONC 32.5 g/dl (32.0-36.5); MEAN CORPUSCULAR VOLUME 90.3 fl (80.0-96.0); PLATELET COUNT, AUTOMATED 226 10^3/uL (150-450); RED BLOOD COUNT 5.07 10^6/uL (4.30-6.10); WHITE BLOOD COUNT 7.3 10^3/uL (4.0-10.0)
[2019-08-10 12:48] LABS: BLOOD UREA NITROGEN 14 MG/DL (7-18); CALCIUM LEVEL 9.6 MG/DL (8.8-10.2); CARBON DIOXIDE LEVEL 31 MEQ/L (21-32); CHLORIDE LEVEL 106 MEQ/L (98-107); CREATININE FOR GFR 1.14 MG/DL (0.70-1.30); GLOMERULAR FILTRATION RATE > 60.0 (>42); GLUCOSE, FASTING 112 MG/DL (70-100); POTASSIUM SERUM 4.7 MEQ/L (3.5-5.1); PROSTATIC SPECIFIC AG MONITOR 0.02 NG/ML (< 4.00); SODIUM LEVEL 140 MEQ/L (136-145)
== END ==
LOC: M SFHCADAM 07:53
PROVIDERS: ATTEND Physician Assistant Medical
DX: Z85.51 Personal history of malignant neoplasm of bladder (principal); C61 Malignant neoplasm of prostate

== ENCOUNTER → 2019-11-27 | Outpatient (CLI) | payer MEDICARE ==
[~2019-11-27] MED LIST changes: -ONDA8TAB10 PO; +ONDA8TAB7 PO
[2019-11-27 14:01] LABS: APPEARANCE, URINE CLOUDY (CLEAR); BACTERIA, URINE AUTO 1+ (NEGATIVE); BILIRUBIN, URINE AUTO NEGATIVE (NEGATIVE); BLOOD, URINE BLOOD 1+ (NEGATIVE); COLOR, URINE YELLOW (YELLOW); GLUCOSE, URINE (UA) AUTO 2+ mg/dL (NEGATIVE); HEMATOCRIT 46.1 % (42.0-52.0); HEMOGLOBIN 15.3 g/dl (13.5-17.5); KETONE, URINE AUTO NEGATIVE (NEGATIVE); LEUKOCYTE ESTERASE, URINE AUTO 3+ (NEGATIVE); MEAN CORPUSCULAR HEMOGLOBIN 29.3 pg (27.0-33.0); MEAN CORPUSCULAR HGB CONC 33.2 g/dl (32.0-36.5); MEAN CORPUSCULAR VOLUME 88.1 fl (80.0-96.0); MUCUS, URINE SMALL (NEGATIVE); NITRITE, URINE AUTO POSITIVE (NEGATIVE); PLATELET COUNT, AUTOMATED 244 10^3/uL (150-450); PROTEIN, URINE AUTO NEGATIVE (NEGATIVE); RBC, URINE AUTO 2 /HPF (0-3); RED BLOOD COUNT 5.23 10^6/uL (4.30-6.10); SPECIFIC GRAVITY URINE AUTO 1.012 (1.002-1.035); SQUAMOUS EPITHELIAL CELL UR AU 0 /HPF (0-6); UROBILINOGEN, URINE AUTO 0.2 mg/dL (0.0-2.0); WBC, URINE AUTO 35 /HPF (0-3); WHITE BLOOD COUNT 9.3 10^3/uL (4.0-10.0)
[2019-11-27 14:30] LABS: BLOOD UREA NITROGEN 15 MG/DL (7-18); CALCIUM LEVEL 9.7 MG/DL (8.8-10.2); CARBON DIOXIDE LEVEL 28 MEQ/L (21-32); CHLORIDE LEVEL 104 MEQ/L (98-107); CREATININE FOR GFR 1.13 MG/DL (0.70-1.30); GLOMERULAR FILTRATION RATE > 60.0 (>42); GLUCOSE, FASTING 84 MG/DL (70-100); POTASSIUM SERUM 4.1 MEQ/L (3.5-5.1); PROSTATIC SPECIFIC AG MONITOR 0.02 NG/ML (< 4.00); SODIUM LEVEL 139 MEQ/L (136-145)
== END ==
LOC: M PLALAB 10:37
PROVIDERS: ATTEND Nurse Practitioner Women's Health
DX: C61 Malignant neoplasm of prostate (principal); Z85.51 Personal history of malignant neoplasm of bladder

== ENCOUNTER 2020-05-07 05:58 | Emergency (ER) | payer MEDICARE ==
[~2020-05-07] VITALS: Ht 182.9 cm; Wt 89.1 kg
[~2020-05-07 05:58] MED LIST changes: +ONDA8TAB10 PO; -ONDA8TAB7 PO
[2020-05-07] MEDS ORDERED: NS 1,000 ML IV ONE (06:30)
[2020-05-07] MEDS ORDERED: METOCLOPRAMIDE INJ 10MG/2ML VIAL (J2765 PER 1) IV ONE (06:30)
[2020-05-07 06:47] LABS: BASO % 0.2 % (0.0-1.0); HEMATOCRIT 41.6 % (42.0-52.0); LYMPH # 0.2 10^3/uL (1.5-5.0); LYMPH % 1.5 % (24.0-44.0); MEAN CORPUSCULAR HEMOGLOBIN 30.1 pg (27.0-33.0); MEAN CORPUSCULAR HGB CONC 33.7 g/dl (32.0-36.5); MEAN CORPUSCULAR VOLUME 89.5 fl (80.0-96.0); MONO # 0.6 10^3/uL (0.0-0.8); MONO % 4.2 % (0.0-5.0); NEUTROPHILS # 13.2 10^3/uL (1.5-8.5); NEUTROPHILS % 93.3 % (36.0-66.0); PLATELET COUNT, AUTOMATED 180 10^3/uL (150-450); RED BLOOD COUNT 4.65 10^6/uL (4.30-6.10); WHITE BLOOD COUNT 14.1 10^3/uL (4.0-10.0)
[2020-05-07 07:36] LABS: ALBUMIN 3.2 GM/DL (3.2-5.2); ALT/SGPT 49 U/L (12-78); BILIRUBIN,DIRECT 0.7 MG/DL (0.0-0.2); BILIRUBIN,TOTAL 1.4 MG/DL (0.2-1.0); BLOOD UREA NITROGEN 16 MG/DL (7-18); CALCIUM LEVEL 9.1 MG/DL (8.8-10.2); CARBON DIOXIDE LEVEL 23 MEQ/L (21-32); CHLORIDE LEVEL 105 MEQ/L (98-107); CK-MB VALUE MASS < 1.0 NG/ML (<3.6); CPK CREATINE PHOSPHOKINASE 54 U/L (39-308); CREATININE FOR GFR 1.94 MG/DL (0.70-1.30); GLOMERULAR FILTRATION RATE 36.2 (>42); GLUCOSE, FASTING 177 MG/DL (70-100); LDH LACTATE DEHYDROGENASE 244 U/L (87-241); LIPASE 44 U/L (73-393); MB/CK RELATIVE INDEX 1.85 (< OR =4); POTASSIUM SERUM 3.7 MEQ/L (3.5-5.1); SODIUM LEVEL 137 MEQ/L (136-145); TOTAL PROTEIN 6.6 GM/DL (6.4-8.2); TROPONIN I < 0.02 NG/ML (< 0.10)
[2020-05-07] MEDS ORDERED: NS 500 ML IV ONE (10:00)
--- NOTE | 2020-05-07 10:22 | REPVR ---
PROCEDURE INFORMATION: Exam: CT Chest Without Contrast Exam date and time: 05/07/2020 7:40 AM Age: 74 years old Clinical indication: Other: Hypoxia TECHNIQUE: Imaging protocol: Computed tomography of the chest without contrast. Radiation optimization: All CT scans at this facility use at least one of these dose optimization techniques: automated exposure control; mA and/or kV adjustment per patient size (includes targeted exams where dose is matched to clinical indication); or iterative reconstruction. COMPARISON: CT Chest with contrast 06/01/2016 1:16 PM FINDINGS: Lungs: Patchy subpleural atelectasis in the dependent portion of both lung bases, left greater than right. Pleural space: Trace amount of pleural fluid seen on the left. Heart: Unremarkable. No cardiomegaly. No pericardial effusion. Mediastinal space: Small sliding hiatal hernia. Aorta: Aneurysmal dilatation noted of the proximal descending thoracic aorta with maximum diameter 3.9 (previous 3.6) cm without change from previous.. No aortic aneurysm. Lymph nodes: Calcified granuloma present bilaterally. Large calcified hilar and subcarinal lymph nodes. Liver: The liver is low in density. Spleen: Multiple calcified splenic granulomas. Bones/joints: Unremarkable. No acute fracture. Soft tissues: Unremarkable. IMPRESSION: 1. Patchy subpleural atelectasis in the dependent portion of both lung bases, left greater than right with trace amount of pleural fluid on the left. 2. Evidence of previous granulomatous disease. 3. Hepatic steatosis. 4. 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 5. Small sliding hiatal hernia Electronically signed by: Diana Jeong On 05/07/2020 10:22:10 AM
--- NOTE | 2020-05-07 10:31 | REPVR ---
PROCEDURE INFORMATION: Exam: CT Abdomen And Pelvis Without Contrast Exam date and time: 05/07/2020 7:40 AM Age: 74 years old Clinical indication: Vomiting; Abdominal pain; Additional info: Emesis/pain TECHNIQUE: Imaging protocol: Computed tomography of the abdomen and pelvis without contrast. Radiation optimization: All CT scans at this facility use at least one of these dose optimization techniques: automated exposure control; mA and/or kV adjustment per patient size (includes targeted exams where dose is matched to clinical indication); or iterative reconstruction. COMPARISON: CT ABD/PEL W/IV ORAL CONTRAS 05/18/2019 6:23 PM FINDINGS: Mediastinal space: Small sliding hiatal hernia. Liver: Liver is low in density. Liver measures 17.8 cm in craniocaudal span. Calcified granuloma within the liver. Gallbladder and bile ducts: Surgical clips in the gallbladder fossa. The gallbladder is absent. Pancreas: Normal. No ductal dilation. Spleen: Calcified granuloma within the spleen. Adrenals: Normal. No mass. Kidneys and ureters: Grouping of calculi in lower pole left kidney with largest measuring 3.5 mm. Calculus in the left proximal ureter measuring 1.3 cm in maximum diameter and density measurement 756 H located at the L2-L3 disc space. Mild to moderate left-sided hydronephrosis. Mild bilateral renal cortical atrophy. Stomach and bowel: Sigmoid colonic diverticulosis. Appendix: No evidence of appendicitis. Intraperitoneal space: Surgical clips present within the abdomen. Vasculature: Unremarkable. No abdominal aortic aneurysm. Lymph nodes: Calcified hilar lymph nodes present. Bladder: Patient has had a cystectomy. Reproductive: Unremarkable as visualized. Bones/joints: Mild narrowing of the hip joints bilaterally. Fusion of the sacroiliac joints bilaterally. Soft tissues: Ostomy noted in the right anterior abdominal wall at the level of the umbilicus. IMPRESSION: 1. Mild to moderate left-sided hydronephrosis secondary to obstructing calculus in the proximal left ureter. 2. Hepatic steatosis. 3. Sigmoid colonic diverticulosis. 4. Small sliding hiatal hernia. 5. Postoperative changes related to previous cystectomy and ileal conduit formation. 6. Bilateral renal cortical atrophy. Electronically signed by: Diana Jeong On 05/07/2020 10:31:29 AM
[2020-05-07] MEDS ORDERED: ERTAPENEM SODIUM 1 GM in NS MINI-BAG PLUS 50 ML IV ONE (12:00)
[2020-05-07] MEDS ORDERED: ACETAMINOPHEN TAB 650MG DOSE (2X325MG) PO ONE (13:15)
[2020-05-07 14:45] VITALS: BP 131/60
[2020-05-19] MEDS ORDERED: CLAR1TAB13 PO (10:57)
[2020-05-19] MEDS ORDERED: MULTCAP PO (10:57)
[2020-05-19] MEDS ORDERED: SULF1TAB93 PO (10:57)
== END 2020-05-07 14:48 | disposition short-term general hospital (02) ==
LOC: M ED 05:58
DX: R11.10 Vomiting, unspecified (principal); N17.9 Acute kidney failure, unspecified; N20.1 Calculus of ureter; N13.39 Other hydronephrosis; C85.90 Non-Hodgkin lymphoma, unspecified, unspecified site; C90.00 Multiple myeloma not having achieved remission; Z85.51 Personal history of malignant neoplasm of bladder; Z88.0 Allergy status to penicillin; Z88.1 Allergy status to other antibiotic agents
CPT/HCPCS: 71250; 74176; 80048; 80076; 82550; 82553; 83605; 83615; 83690; 84484; 85025; 85379; 86140; 87040; 87486; 87581; 87633; 87798; 96361; 96365; 96375; 99285; J1335; J2765

== ENCOUNTER → 2020-05-20 | Outpatient (REF) | payer MEDICARE ==
[~2020-05-20] MED LIST changes: +CLAR1TAB13 PO; +MULTCAP PO; +SULF1TAB93 PO
[2020-05-20 14:50] LABS: APPEARANCE, URINE CLOUDY (CLEAR); BACTERIA, URINE AUTO 1+ (NEGATIVE); BILIRUBIN, URINE AUTO NEGATIVE (NEGATIVE); BLOOD, URINE BLOOD 1+ (NEGATIVE); CALCIUM OXALATE CRYSTALS SMALL; COLOR, URINE YELLOW (YELLOW); GLUCOSE, URINE (UA) AUTO NEGATIVE (NEGATIVE); KETONE, URINE AUTO NEGATIVE (NEGATIVE); LEUKOCYTE ESTERASE, URINE AUTO 3+ (NEGATIVE); MUCUS, URINE SMALL (NEGATIVE); NITRITE, URINE AUTO NEGATIVE (NEGATIVE); PROTEIN, URINE AUTO 1+ mg/dL (NEGATIVE); RBC, URINE AUTO 7 /HPF (0-3); SPECIFIC GRAVITY URINE AUTO 1.014 (1.002-1.035); SQUAMOUS EPITHELIAL CELL UR AU 0 /HPF (0-6); UROBILINOGEN, URINE AUTO 0.2 mg/dL (0.0-2.0); WBC, URINE AUTO 39 /HPF (0-3)
[2020-05-20 14:57] LABS: HEMATOCRIT 42.7 % (42.0-52.0); HEMOGLOBIN 13.7 g/dl (13.5-17.5); MEAN CORPUSCULAR HGB CONC 32.1 g/dl (32.0-36.5); MEAN CORPUSCULAR VOLUME 90.5 fl (80.0-96.0); PLATELET COUNT, AUTOMATED 403 10^3/uL (150-450); RED BLOOD COUNT 4.72 10^6/uL (4.30-6.10); WHITE BLOOD COUNT 8.2 10^3/uL (4.0-10.0)
[2020-05-20 15:05] LABS: INR 1.02; PROTHROMBIN TIME 13.1 SECONDS (11.8-14.0)
[2020-05-20 15:06] LABS: PARTIAL THROMBOPLASTIN TIME 31.5 SECONDS (25.0-38.4)
[2020-05-20 15:09] LABS: CALCIUM LEVEL 9.4 MG/DL (8.8-10.2); CREATININE FOR GFR 1.39 MG/DL (0.70-1.30); GLOMERULAR FILTRATION RATE 53.2 (>42); POTASSIUM SERUM 4.2 MEQ/L (3.5-5.1)
== END ==
LOC: M SHH 13:23
PROVIDERS: ATTEND Nurse Practitioner Women's Health
DX: N13.2 Hydronephrosis with renal and ureteral calculous obstruction (principal); Z01.818 Encounter for other preprocedural examination; Z79.01 Long term (current) use of anticoagulants

== ENCOUNTER → 2020-05-23 | Outpatient (CLI) | payer MEDICARE | LOC: M LABSMTC 10:46 | PROVIDERS: ATTEND Anesthesiology | DX: Z01.818 Encounter for other preprocedural examination (principal); Z11.59 Encounter for screening for other viral diseases | CPT/HCPCS: C9803; U0003 ==

== ENCOUNTER 2020-05-26 06:54 | Day surgery (SDC) | payer MEDICARE ==
[~2020-05-26] VITALS: Ht 182.9 cm; Wt 84.8 kg
[2020-05-26] MEDS ORDERED: LR 1,000 ML IV ONE (07:00)
[2020-05-26] MEDS ORDERED: TRIMETHOPRIM/SULFAMETHOXAZOLE 160 MG in D5W 250 ML IV ONE (07:00)
--- NOTE | 2020-05-26 09:19 | REP ---
KUB: Single view. HISTORY: Kidney stone. Comparison film June 29, 2016. FINDINGS: There is a enterostomy ring visible in the right lower quadrant and some adjacent surgical suture lines are seen. There are clips in the right upper quadrant consistent with previous cholecystectomy. A pigtail percutaneous nephrostomy catheter is noted in place on the left. Adjacent to this, there is a large calcification 14 mm in size projecting at the lower pole level of the left kidney. No other urinary tract calculus is seen. Psoas margins and flank stripes are intact. There is a granulomatous calcification in the right lung base. IMPRESSION: 14 mm upper tract calculus lower pole collecting system left kidney adjacent to a percutaneous nephrostomy tube. Electronically Signed by Grabiel Linda MD 05/26/2020 09:20 A
[2020-05-26] MEDS ORDERED: LIDOCAINE 2% 100MG/5ML SDV (FOR ANES.) As Ordered ONE (09:49)
[2020-05-26] MEDS ORDERED: propofoL 200 MG/20 ML VIAL As Ordered ONE (09:49)
[2020-05-26 10:30] VITALS: BP 153/74
--- NOTE | 2020-06-01 13:38 | RO ---
DATE OF PROCEDURE: 05/26/2020 PREPROCEDURE DIAGNOSIS: Left kidney stone. POSTPROCEDURE DIAGNOSIS: Left kidney stone. PROCEDURE: Left extracorporeal shockwave lithotripsy. SURGEON: Dr. Aime Jean Baptiste AGRICULTURE ENGINEER: None. ANESTHESIA: Monitored anesthesia care (MAC). OPERATIVE INDICATIONS: This is a 74-year-old male with history of bladder cancer who has undergone a radical cystectomy and ileal conduit several years ago. He presented to the emergency room a few weeks ago with a urinary tract infection and an obstructing approximately 1 to 1.5 cm left ureteropelvic junction stone. He had a left nephrostomy tube placed. The infection has been treated. He is here today for treatment for the kidney stone. DESCRIPTION OF PROCEDURE: The patient was brought to the operating room and MAC anesthesia was administered. Prophylactic antibiotics were infused. He was placed in the supine position on the lithotripsy table for a left sided extracorporeal shockwave lithotripsy. Fluoroscopy was utilized to monitor the stone position and fragmentation throughout the procedure. Shockwaves were then delivered to the left sided kidney stone ungated. There were no arrhythmias. The stone did appear to fragment well. After 2500 shocks, the procedure was concluded. The patient was then awakened from anesthesia and transported to the recovery room in stable condition. Estimated blood loss 0 mL. Complications: None. Specimens: None. Plan: Will have the patient followup in the clinic in a few weeks with imaging prior to check for residual stone burden. Once all the stone fragments have passed, we will take the nephrostomy tube out. JEMAL
== END 2020-05-26 10:40 | disposition home or self-care (01) ==
LOC: M SDC 06:54
PROVIDERS: ATTEND Urology
DX: N20.0 Calculus of kidney (principal); N40.0 Benign prostatic hyperplasia without lower urinary tract symptoms; Z85.51 Personal history of malignant neoplasm of bladder; Z85.72 Personal history of non-Hodgkin lymphomas; Z92.21 Personal history of antineoplastic chemotherapy; Z88.0 Allergy status to penicillin; Z88.1 Allergy status to other antibiotic agents

== ENCOUNTER → 2020-06-08 | Outpatient (REF) | payer MEDICARE ==
[2020-06-08 13:43] LABS: HEMATOCRIT 41.5 % (42.0-52.0); HEMOGLOBIN 13.5 g/dl (13.5-17.5); MEAN CORPUSCULAR HEMOGLOBIN 29.5 pg (27.0-33.0); MEAN CORPUSCULAR HGB CONC 32.5 g/dl (32.0-36.5); MEAN CORPUSCULAR VOLUME 90.6 fl (80.0-96.0); PLATELET COUNT, AUTOMATED 220 10^3/uL (150-450); RED BLOOD COUNT 4.58 10^6/uL (4.30-6.10); WHITE BLOOD COUNT 7.3 10^3/uL (4.0-10.0)
[2020-06-08 13:47] LABS: AMORPHOUS SEDIMENT SMALL (NEGATIVE); APPEARANCE, URINE CLOUDY (CLEAR); BACTERIA, URINE AUTO 2+ (NEGATIVE); BILIRUBIN, URINE AUTO NEGATIVE (NEGATIVE); BLOOD, URINE BLOOD NEGATIVE (NEGATIVE); COLOR, URINE YELLOW (YELLOW); GLUCOSE, URINE (UA) AUTO NEGATIVE (NEGATIVE); KETONE, URINE AUTO NEGATIVE (NEGATIVE); LEUKOCYTE ESTERASE, URINE AUTO 3+ (NEGATIVE); MUCUS, URINE SMALL (NEGATIVE); NITRITE, URINE AUTO POSITIVE (NEGATIVE); PROTEIN, URINE AUTO NEGATIVE (NEGATIVE); RBC, URINE AUTO 10 /HPF (0-3); SPECIFIC GRAVITY URINE AUTO 1.006 (1.002-1.035); SQUAMOUS EPITHELIAL CELL UR AU 0 /HPF (0-6); UROBILINOGEN, URINE AUTO 0.2 mg/dL (0.0-2.0); WBC, URINE AUTO 12 /HPF (0-3)
[2020-06-08 13:53] LABS: BLOOD UREA NITROGEN 14 MG/DL (7-18); CARBON DIOXIDE LEVEL 27 MEQ/L (21-32); CHLORIDE LEVEL 106 MEQ/L (98-107); CREATININE FOR GFR 1.23 MG/DL (0.70-1.30); GLOMERULAR FILTRATION RATE > 60.0 (>42); GLUCOSE, FASTING 131 MG/DL (70-100); POTASSIUM SERUM 4.3 MEQ/L (3.5-5.1); PROSTATIC SPECIFIC AG MONITOR 0.02 NG/ML (< 4.00); SODIUM LEVEL 141 MEQ/L (136-145)
== END ==
LOC: M SFHCADAM 10:00
PROVIDERS: ATTEND Nurse Practitioner Women's Health
DX: C61 Malignant neoplasm of prostate (principal); Z85.51 Personal history of malignant neoplasm of bladder; Z93.6 Other artificial openings of urinary tract status

== ENCOUNTER → 2020-06-14 | Outpatient (CLI) | payer MEDICARE ==
--- NOTE | 2020-06-14 11:23 | REP ---
KUB: Two views. HISTORY: Kidney stones. Comparison radiograph May 26, 2020. FINDINGS: A left-sided percutaneous nephrostomy catheter is noted in place. There is an enterostomy ring in the right lower quadrant and adjacent sutures are seen. There are clips in the right upper quadrant. No urinary tract calculus is visible today. Electronically Signed by Grabiel Linda MD 06/14/2020 01:10 P
== END ==
LOC: M ADAMS 08:10
PROVIDERS: ATTEND Urology
DX: N20.0 Calculus of kidney (principal)

== ENCOUNTER 2020-07-07 08:47 | Day surgery (SDC) | payer MEDICARE ==
[2020-07-07] MEDS ORDERED: CLINDAMYCIN 900 MG/50 ML PREMIX BAG As Ordered ONE (09:29)
[2020-07-07] MEDS ORDERED: LIDOCAINE 2% 100MG/5ML SDV (FOR ANES.) As Ordered ONE (09:35)
[2020-07-07] MEDS ORDERED: propofoL 200 MG/20 ML VIAL As Ordered ONE (09:35)
[2020-07-07] MEDS ORDERED: fentaNYL 100 MCG/2 ML INJECTION (J3010) As Ordered ONE (09:35)
[2020-07-07] MEDS ORDERED: MIDAZOLAM INJ 2MG/2ML VIAL (J2250 PER 1MG) As Ordered ONE (09:35)
[2020-07-07] MEDS ORDERED: ONDANSETRON 4MG/2ML VIAL As Ordered ONE (10:29)
--- NOTE | 2020-09-01 13:16 | RO ---
DATE OF PROCEDURE: 06/23/2020 PRE-PROCEDURE DIAGNOSIS: Left kidney stone. POST-PROCEDURE DIAGNOSIS: Left kidney stone. PROCEDURES: Left extracorporeal shock wave lithotripsy. SURGEON: Aime Jean Bapitste MD. WOOD TYPE CUTTER: None. ANESTHESIA: MAC. OPERATIVE INDICATIONS: This is a 75-year-old male who was found to have an approximately 1.3-cm obstructing left ureteropelvic junction stone about three months ago. He had a nephrostomy tube placed due to an ileal conduit. He was brought to the operating room a few weeks ago for a left extracorporeal shock wave lithotripsy. On followup imaging, he still had residual, approximately 5- mm, stone in the lower pole of the left kidney. He was brought to the operating room today for another left extracorporeal shock wave lithotripsy prior to removing his nephrostomy tube. DESCRIPTION OF PROCEDURE: The patient was brought to the operating room and MAC anesthesia was administered. Prophylactic antibiotics were infused. He was then placed in the supine position in preparation for a left-sided extracorporeal shock wave lithotripsy. We were not able to visualize the stone on fluoroscopy, but we were able to visualize a small stone in the lower pole with ultrasound. At this point, shock waves were delivered to the left-sided kidney stone ungated. There were no arrhythmias. The stone did appear to fragment well. After 2,500 shocks, the procedure was concluded. The patient was then awakened from anesthesia and transferred to the recovery room in stable condition. ESTIMATED BLOOD LOSS: 0 mL. COMPLICATIONS: None. SPECIMEN: None. PLAN: I will have the patient follow up in the Urology Clinic is approximately two weeks. We will take the nephrostomy tube out at that time. JEMAL
== END 2020-07-07 11:50 | disposition home or self-care (01) ==
LOC: M SDC 08:47
PROVIDERS: ATTEND Urology
DX: N20.0 Calculus of kidney (principal); K21.9 Gastro-esophageal reflux disease without esophagitis; Z79.899 Other long term (current) drug therapy; Z88.0 Allergy status to penicillin; Z85.46 Personal history of malignant neoplasm of prostate
CPT/HCPCS: 50590; J2250; J2405; J3010

== ENCOUNTER → 2020-08-05 | Outpatient (REF) | payer MEDICARE ==
[2020-08-05 13:47] LABS: BASO # 0.1 10^3/uL (0.0-0.2); BASO % 1.1 % (0.0-1.0); EOS # 0.2 10^3/uL (0.0-0.5); EOS % 3.4 % (0.0-3.0); HEMATOCRIT 39.5 % (42.0-52.0); LYMPH # 1.5 10^3/uL (1.5-5.0); LYMPH % 24.6 % (24.0-44.0); MEAN CORPUSCULAR HEMOGLOBIN 29.2 pg (27.0-33.0); MEAN CORPUSCULAR HGB CONC 32.9 g/dl (32.0-36.5); MEAN CORPUSCULAR VOLUME 88.8 fl (80.0-96.0); MONO # 0.6 10^3/uL (0.0-0.8); MONO % 8.8 % (0.0-5.0); NEUTROPHILS # 3.8 10^3/uL (1.5-8.5); NEUTROPHILS % 61.1 % (36.0-66.0); PLATELET COUNT, AUTOMATED 183 10^3/uL (150-450); RED BLOOD COUNT 4.45 10^6/uL (4.30-6.10); WHITE BLOOD COUNT 6.3 10^3/uL (4.0-10.0)
[2020-08-05 14:28] LABS: BLOOD UREA NITROGEN 15 MG/DL (7-18); CREATININE FOR GFR 1.16 MG/DL (0.70-1.30); GLOMERULAR FILTRATION RATE > 60.0 (>42); GLUCOSE, FASTING 101 MG/DL (70-100); POTASSIUM SERUM 4.5 MEQ/L (3.5-5.1); SODIUM LEVEL 140 MEQ/L (136-145)
[2020-08-05 14:29] LABS: ALBUMIN 3.7 GM/DL (3.2-5.2); ALT/SGPT 39 IU/L (0-32); BILIRUBIN,TOTAL 0.5 MG/DL (0.2-1.0); CALCIUM LEVEL 9.2 MG/DL (8.8-10.2); CARBON DIOXIDE LEVEL 25 mmol/L (20-29); CHLORIDE LEVEL 107 MEQ/L (98-107); CHOLESTEROL LEVEL 209 MG/DL (<200); CHOLESTEROL RISK RATIO 4.543 (<5); HDL CHOLESTEROL 46 MG/DL (>40); LDL CHOLESTEROL 122.4 MG/DL (<100); NON-HDL-C 163 MG/DL; TOTAL PROTEIN 7.2 GM/DL (6.4-8.2); TRIGLYCERIDES LEVEL 203 MG/DL (<150)
== END ==
LOC: M LABDRWAD 12:54
PROVIDERS: ATTEND Physician Assistant Medical
DX: L88 Pyoderma gangrenosum (principal); D50.9 Iron deficiency anemia, unspecified; Z85.51 Personal history of malignant neoplasm of bladder; Z79.899 Other long term (current) drug therapy

== ENCOUNTER → 2021-01-24 | Outpatient (REF) | payer MEDICARE ==
[~2021-01-24] MED LIST changes: -CLIN150C14 PO; +CLIN150C15 PO; +MULT-90 PO
== END ==
LOC: M SMT 12:42
PROVIDERS: ATTEND Nurse Practitioner Women's Health
DX: Z85.51 Personal history of malignant neoplasm of bladder (principal)

== ENCOUNTER → 2021-08-08 | Outpatient (REF) | payer MEDICARE ==
[~2021-08-08] MED LIST changes: +BACTDSTA PO; -CLIN150C15 PO; +CLIN150C17 PO; +ONDA-84 PO; -ONDA8TAB10 PO; -PROC10TA4 PO; +PROC10TA5 PO; -SULF1TAB93 PO
[2021-08-08 12:57] LABS: HEMATOCRIT 46.1 % (42.0-52.0); HEMOGLOBIN 15.2 g/dl (13.5-17.5); MEAN CORPUSCULAR HEMOGLOBIN 29.3 pg (27.0-33.0); PLATELET COUNT, AUTOMATED 236 10^3/uL (150-450); RED BLOOD COUNT 5.18 10^6/uL (4.30-6.10); WHITE BLOOD COUNT 7.8 10^3/uL (4.0-10.0)
[2021-08-08 13:56] LABS: BLOOD UREA NITROGEN 15 MG/DL (7-18); CALCIUM LEVEL 9.6 MG/DL (8.8-10.2); CARBON DIOXIDE LEVEL 28 MEQ/L (21-32); CHLORIDE LEVEL 105 MEQ/L (98-107); CREATININE FOR GFR 1.11 MG/DL (0.70-1.30); GLOMERULAR FILTRATION RATE > 60.0 (>42); GLUCOSE, FASTING 106 MG/DL (70-100); POTASSIUM SERUM 4.6 MEQ/L (3.5-5.1); PROSTATIC SPECIFIC AG MONITOR 0.01 NG/ML (< 4.00); SODIUM LEVEL 140 MEQ/L (136-145)
== END ==
LOC: M SFHCADAM 09:16
PROVIDERS: ATTEND Physician Assistant Medical
DX: Z85.51 Personal history of malignant neoplasm of bladder (principal); Z85.46 Personal history of malignant neoplasm of prostate

== ENCOUNTER → 2022-01-26 | Outpatient (REF) | payer MEDICARE ==
[2022-01-26 13:28] LABS: HEMATOCRIT 43.8 % (42.0-52.0); MEAN CORPUSCULAR HEMOGLOBIN 29.8 pg (27.0-33.0); MEAN CORPUSCULAR HGB CONC 34.2 g/dl (32.0-36.5); MEAN CORPUSCULAR VOLUME 87.1 fl (80.0-96.0); PLATELET COUNT, AUTOMATED 242 10^3/uL (150-450); RED BLOOD COUNT 5.03 10^6/uL (4.30-6.10); WHITE BLOOD COUNT 8.2 10^3/uL (4.0-10.0)
[2022-01-26 13:38] LABS: AMORPHOUS SEDIMENT SMALL (NEGATIVE); APPEARANCE, URINE HAZY (CLEAR); BACTERIA, URINE AUTO 1+ (NEGATIVE); BILIRUBIN, URINE AUTO NEGATIVE (NEGATIVE); BLOOD, URINE BLOOD NEGATIVE (NEGATIVE); COLOR, URINE YELLOW (YELLOW); GLUCOSE, URINE (UA) AUTO NEGATIVE (NEGATIVE); KETONE, URINE AUTO NEGATIVE (NEGATIVE); LEUKOCYTE ESTERASE, URINE AUTO 3+ (NEGATIVE); MUCUS, URINE SMALL (NEGATIVE); NITRITE, URINE AUTO POSITIVE (NEGATIVE); PROTEIN, URINE AUTO NEGATIVE (NEGATIVE); RBC, URINE AUTO 1 /HPF (0-3); SPECIFIC GRAVITY URINE AUTO 1.006 (1.002-1.035); SQUAMOUS EPITHELIAL CELL UR AU 1 /HPF (0-6); TRIPLE PHOSPHATE CRYSTALS SMALL; UROBILINOGEN, URINE AUTO 0.2 mg/dL (0.0-2.0); WBC, URINE AUTO 1 /HPF (0-3)
[2022-01-26 13:59] LABS: BLOOD UREA NITROGEN 16 MG/DL (7-18); CALCIUM LEVEL 9.8 MG/DL (8.8-10.2); CARBON DIOXIDE LEVEL 28 MEQ/L (21-32); CHLORIDE LEVEL 106 MEQ/L (98-107); CREATININE FOR GFR 1.11 MG/DL (0.70-1.30); GLOMERULAR FILTRATION RATE > 60.0 (>42); GLUCOSE, FASTING 96 MG/DL (70-100); POTASSIUM SERUM 4.3 MEQ/L (3.5-5.1); PROSTATIC SPECIFIC AG MONITOR < 0.01 NG/ML (< 4.00); SODIUM LEVEL 138 MEQ/L (136-145)
== END ==
LOC: M SFHCADAM 08:55
PROVIDERS: ATTEND Physician Assistant Medical
DX: Z85.51 Personal history of malignant neoplasm of bladder (principal); Z85.46 Personal history of malignant neoplasm of prostate

== ENCOUNTER → 2022-02-07 | Outpatient (REF) | payer MEDICARE | LOC: M SFHCADAM 12:52 | PROVIDERS: ATTEND Physician Assistant Medical | DX: Z85.51 Personal history of malignant neoplasm of bladder (principal); Z85.46 Personal history of malignant neoplasm of prostate ==

== ENCOUNTER → 2022-08-09 | Outpatient (REF) | payer MEDICARE ==
[2022-08-09 13:03] LABS: EOS % 2.3 % (0.0-3.0); HEMATOCRIT 47.5 % (42.0-52.0); HEMOGLOBIN 15.4 g/dl (13.5-17.5); LYMPH # 2.1 10^3/uL (1.5-5.0); LYMPH % 22.1 % (24.0-44.0); MEAN CORPUSCULAR HEMOGLOBIN 29.3 pg (27.0-33.0); MEAN CORPUSCULAR HGB CONC 32.4 g/dl (32.0-36.5); MEAN CORPUSCULAR VOLUME 90.3 fl (80.0-96.0); MONO # 0.9 10^3/uL (0.0-0.8); MONO % 9.1 % (2.0-8.0); NEUTROPHILS # 6.1 10^3/uL (1.5-8.5); NEUTROPHILS % 63.6 % (36.0-66.0); PLATELET COUNT, AUTOMATED 253 10^3/uL (150-450); RED BLOOD COUNT 5.26 10^6/uL (4.30-6.10); WHITE BLOOD COUNT 9.7 10^3/uL (4.0-10.0)
[2022-08-09 13:04] LABS: BASO # 0.1 10^3/uL (0.0-0.2); EOS # 0.2 10^3/uL (0.0-0.5)
[2022-08-09 13:39] LABS: ALT/SGPT 47 U/L (12-78); BILIRUBIN,TOTAL 0.5 MG/DL (0.2-1.0); BLOOD UREA NITROGEN 16 MG/DL (7-18); CALCIUM LEVEL 9.8 MG/DL (8.8-10.2); CARBON DIOXIDE LEVEL 27 MEQ/L (21-32); CHLORIDE LEVEL 105 MEQ/L (98-107); CHOLESTEROL LEVEL 198 MG/DL (<200); CREATININE FOR GFR 1.17 MG/DL (0.70-1.30); GLOMERULAR FILTRATION RATE > 60.0 (>42); GLUCOSE, FASTING 121 MG/DL (70-100); HDL CHOLESTEROL 50 MG/DL (>40); LDL CHOLESTEROL 112 MG/DL (<100); NON-HDL-C 148 MG/DL; POTASSIUM SERUM 5.1 MEQ/L (3.5-5.1); SODIUM LEVEL 137 MEQ/L (136-145); TOTAL PROTEIN 7.5 GM/DL (6.4-8.2); TRIGLYCERIDES LEVEL 181 MG/DL (<150)
== END ==
LOC: M SFHCADAM 08:43
PROVIDERS: ATTEND Physician Assistant Medical
DX: Z00.00 Encounter for general adult medical examination without abnormal findings (principal); D50.9 Iron deficiency anemia, unspecified; C88.0 Waldenstrom macroglobulinemia; Z85.46 Personal history of malignant neoplasm of prostate; E78.00 Pure hypercholesterolemia, unspecified

== ENCOUNTER → 2023-02-06 | Outpatient (REF) | payer MEDICARE ==
[2023-02-06 13:14] LABS: AMORPHOUS SEDIMENT SMALL (NEGATIVE); APPEARANCE, URINE HAZY (CLEAR); BACTERIA, URINE AUTO NEGATIVE (NEGATIVE); BILIRUBIN, URINE AUTO NEGATIVE (NEGATIVE); BLOOD, URINE BLOOD NEGATIVE (NEGATIVE); COLOR, URINE YELLOW (YELLOW); GLUCOSE, URINE (UA) AUTO NEGATIVE (NEGATIVE); KETONE, URINE AUTO NEGATIVE (NEGATIVE); LEUKOCYTE ESTERASE, URINE AUTO 2+ (NEGATIVE); NITRITE, URINE AUTO POSITIVE (NEGATIVE); PROTEIN, URINE AUTO NEGATIVE (NEGATIVE); RBC, URINE AUTO 0 /HPF (0-3); SPECIFIC GRAVITY URINE AUTO 1.006 (1.002-1.035); SQUAMOUS EPITHELIAL CELL UR AU 3 /HPF (0-6); UROBILINOGEN, URINE AUTO 0.2 mg/dL (0.0-2.0); WBC, URINE AUTO 1 /HPF (0-3)
[2023-02-06 13:19] LABS: BASO # 0.1 10^3/uL (0.0-0.2); BASO % 1.3 % (0.0-1.0); EOS # 0.3 10^3/uL (0.0-0.5); EOS % 2.9 % (0.0-3.0); HEMATOCRIT 47.4 % (42.0-52.0); HEMOGLOBIN 15.9 g/dl (13.5-17.5); LYMPH # 2.1 10^3/uL (1.5-5.0); LYMPH % 21.8 % (24.0-44.0); MEAN CORPUSCULAR HEMOGLOBIN 29.9 pg (27.0-33.0); MEAN CORPUSCULAR HGB CONC 33.5 g/dl (32.0-36.5); MEAN CORPUSCULAR VOLUME 89.3 fl (80.0-96.0); MONO # 0.9 10^3/uL (0.0-0.8); MONO % 8.9 % (2.0-8.0); NEUTROPHILS # 6.3 10^3/uL (1.5-8.5); PLATELET COUNT, AUTOMATED 248 10^3/uL (150-450); RED BLOOD COUNT 5.31 10^6/uL (4.30-6.10); WHITE BLOOD COUNT 9.8 10^3/uL (4.0-10.0)
[2023-02-06 13:49] LABS: BLOOD UREA NITROGEN 15 MG/DL (9-23); CARBON DIOXIDE LEVEL 26 MMOL/L (20-31); CHLORIDE LEVEL 101 MMOL/L (98-107); CREATININE FOR GFR 0.96 MG/DL (0.70-1.30); GLOMERULAR FILTRATION RATE > 60.0 (>42); GLUCOSE, FASTING 75 MG/DL (74-106); POTASSIUM SERUM 4.1 MMOL/L (3.5-5.1); PROSTATIC SPECIFIC AG MONITOR 0.04 NG/ML (< 4.00); SODIUM LEVEL 137 MMOL/L (136-145)
== END ==
LOC: M SFHCADAM 10:57
PROVIDERS: ATTEND Nurse Practitioner Women's Health
DX: Z00.00 Encounter for general adult medical examination without abnormal findings (principal); C88.0 Waldenstrom macroglobulinemia; R73.01 Impaired fasting glucose; Z85.51 Personal history of malignant neoplasm of bladder; Z85.46 Personal history of malignant neoplasm of prostate

== ENCOUNTER 2023-07-05 09:05 | Day surgery (SDC) | payer MEDICARE ==
[~2023-07-05] VITALS: Ht 182.9 cm; Wt 83.6 kg
[~2023-07-05 09:05] MED LIST changes: +LORA-243 PO; +NS 1,000 ML IV ONE
[2023-07-05] MEDS ORDERED: [UNRECOGNIZED DRUG - OTHER] PO (10:06)
[2023-07-05] MEDS ORDERED: propofoL 200 MG/20 ML VIAL As Ordered ONE ×2 (10:29→11:50)
[2023-07-05] MEDS ORDERED: GLYCOPYRROLATE INJ 0.2 MG/ML 2 ML VIAL As Ordered ONE (11:49)
[2023-07-05 12:06] VITALS: TEMP 97.1
[2023-07-05 12:32] VITALS: BP 122/70; O2SAT 96
== END 2023-07-05 12:40 | disposition home or self-care (01) ==
LOC: M OPP 09:05
PROVIDERS: ATTEND Internal Medicine Gastroenterology
DX: Z86.010 Personal history of colon polyps (principal); K57.30 Diverticulosis of large intestine without perforation or abscess without bleeding; Z88.0 Allergy status to penicillin; Z88.1 Allergy status to other antibiotic agents; Z88.6 Allergy status to analgesic agent

== ENCOUNTER → 2023-08-07 | Outpatient (REF) | payer MEDICARE ==
[~2023-08-07] MED LIST changes: -NS 1,000 ML IV ONE; +[UNRECOGNIZED DRUG - OTHER] PO; +[UNRECOGNIZED DRUG - OTHER] PO
[2023-08-07 15:58] LABS: ALBUMIN 3.7 G/DL (3.2-5.2); ALKALINE PHOSPHATASE 121 U/L (46-116); ALT/SGPT 30 U/L (7.0-40); AST/SGOT 11 U/L (<34); BILIRUBIN,TOTAL 0.6 MG/DL (0.3-1.2); BLOOD UREA NITROGEN 20 MG/DL (9-23); CALCIUM LEVEL 9.9 MG/DL (8.3-10.6); CARBON DIOXIDE LEVEL 29 MMOL/L (20-31); CHLORIDE LEVEL 103 MMOL/L (98-107); CHOLESTEROL LEVEL 162 MG/DL (<200); CHOLESTEROL RISK RATIO 3.95 (<5); CREATININE FOR GFR 0.99 MG/DL (0.70-1.30); GLOMERULAR FILTRATION RATE > 60.0 (>42); GLUCOSE, FASTING 128 MG/DL (74-106); LDL CHOLESTEROL 99.6 MG/DL (<100); POTASSIUM SERUM 5.1 MMOL/L (3.5-5.1); SODIUM LEVEL 139 MMOL/L (136-145); TOTAL PROTEIN 7.3 G/DL (5.7-8.2); TRIGLYCERIDES LEVEL 107 MG/DL (<150)
[2023-08-07 15:59] LABS: THYROID STIMULATING HORMONE 2.811 uIU/ML (0.55-4.78)
[2023-08-07 16:05] LABS: HEMOGLOBIN A1c 6.9 % (4.0-6.0)
== END ==
LOC: M SFHCADAM 08:15
PROVIDERS: ATTEND Physician Assistant Medical
DX: Z00.00 Encounter for general adult medical examination without abnormal findings (principal); C88.0 Waldenstrom macroglobulinemia; R73.01 Impaired fasting glucose; E07.9 Disorder of thyroid, unspecified; E78.00 Pure hypercholesterolemia, unspecified

== ENCOUNTER → 2024-02-14 | Outpatient (REF) | payer MEDICARE ==
[~2024-02-14] MED LIST changes: +BIOFTAB PO
[2024-02-14 13:46] LABS: HEMOGLOBIN A1c 6.8 % (4.0-6.0)
[2024-02-14 13:54] LABS: CREATININE, URINE 41.9 MG/DL
[2024-02-14 13:55] LABS: MAU/CREAT RATIO 40.5 MCG/MG (0.0-30.0)
[2024-02-14 14:00] LABS: ALBUMIN 3.7 G/DL (3.2-5.2); ALKALINE PHOSPHATASE 164 U/L (46-116); ALT/SGPT 124 U/L (7.0-40); AST/SGOT 53 U/L (<34); BILIRUBIN,TOTAL 0.6 MG/DL (0.3-1.2); BLOOD UREA NITROGEN 14 MG/DL (9-23); CALCIUM LEVEL 9.8 MG/DL (8.3-10.6); CARBON DIOXIDE LEVEL 30 MMOL/L (20-31); CHLORIDE LEVEL 101 MMOL/L (98-107); CREATININE FOR GFR 0.98 MG/DL (0.70-1.30); GLOMERULAR FILTRATION RATE > 60.0 (>42); GLUCOSE, FASTING 124 MG/DL (74-106); POTASSIUM SERUM 5.1 MMOL/L (3.5-5.1); SODIUM LEVEL 135 MMOL/L (136-145); TOTAL PROTEIN 7.7 G/DL (5.7-8.2)
== END ==
LOC: M SFHCADAM 08:36
PROVIDERS: ATTEND Physician Assistant Medical
DX: E11.9 Type 2 diabetes mellitus without complications (principal)

== ENCOUNTER → 2024-03-11 | Outpatient (CLI) | payer MEDICARE | LOC: M RAD 10:43 | PROVIDERS: ATTEND Physician Assistant Medical | DX: R74.01 Elevation of levels of liver transaminase levels (principal) ==

== ENCOUNTER → 2024-06-09 | Outpatient (CLI) | payer MEDICARE | LOC: M PLAIMG 09:14 | PROVIDERS: ATTEND Physician Assistant Medical | DX: K80.50 Calculus of bile duct without cholangitis or cholecystitis without obstruction (principal); R93.3 Abnormal findings on diagnostic imaging of other parts of digestive tract ==

== ENCOUNTER → 2024-06-30 | Outpatient (REF) | payer MEDICARE ==
[2024-06-30 20:06] LABS: ALBUMIN 3.5 G/DL (3.2-5.2); BILIRUBIN,DIRECT 0.2 MG/DL (<0.4); BILIRUBIN,TOTAL 0.6 MG/DL (0.3-1.2)
== END ==
LOC: M LABDRWAD 17:47
PROVIDERS: ATTEND Physician Assistant Medical
DX: R93.3 Abnormal findings on diagnostic imaging of other parts of digestive tract (principal)

== ENCOUNTER 2024-08-20 12:39 | Day surgery (SDC) | payer MEDICARE ==
[~2024-08-20] VITALS: Ht 182.9 cm; Wt 78.6 kg
[2024-08-20 13:20] LABS: HEMATOCRIT 40.6 % (42.0-52.0); HEMOGLOBIN 13.4 g/dl (13.5-17.5); MEAN CORPUSCULAR HEMOGLOBIN 28.7 pg (27.0-33.0); MEAN CORPUSCULAR VOLUME 86.9 fl (80.0-96.0); PLATELET COUNT, AUTOMATED 288 10^3/uL (150-450); RED BLOOD COUNT 4.67 10^6/uL (4.30-6.10)
[2024-08-20] MEDS ORDERED: LIDOCAINE 1% SDV 5ML VIAL SC PRN (13:30)
[2024-08-20] MEDS: LR 1,000 ML IV SCH (13:41)
[2024-08-20 13:43] LABS: BLOOD UREA NITROGEN 13 MG/DL (9-23); CALCIUM LEVEL 9.8 MG/DL (8.3-10.6); CARBON DIOXIDE LEVEL 26 MMOL/L (20-31); CHLORIDE LEVEL 108 MMOL/L (98-107); CREATININE FOR GFR 0.94 MG/DL (0.70-1.30); GLOMERULAR FILTRATION RATE > 60.0 (>42); GLUCOSE, FASTING 98 MG/DL (74-106); POTASSIUM SERUM 4.1 MMOL/L (3.5-5.1); SODIUM LEVEL 139 MMOL/L (136-145)
[2024-08-20] MEDS ORDERED: LIDOCAINE 2% 100MG/5ML SDV (FOR ANES.) ONE (16:36)
[2024-08-20] MEDS ORDERED: propofoL 200 MG/20 ML VIAL ONE (16:36)
[2024-08-20] MEDS ORDERED: MIDAZOLAM INJ 2MG/2ML VIAL ONE (16:36)
[2024-08-20] MEDS ORDERED: SUGAMMADEX SODIUM 500 MG/5 ML VIAL (BRIDION) ONE (16:36)
[2024-08-20] MEDS ORDERED: ROCURONIUM BROMIDE 50MG/5ML VIAL ONE (16:36)
[2024-08-20] MEDS ORDERED: fentaNYL 100 MCG/2 ML INJECTION ONE (16:36)
[2024-08-20] MEDS ORDERED: ONDANSETRON 4MG 2ML VIAL ONE (16:36)
[2024-08-20] MEDS ORDERED: ACETAMINOPHEN 1000MG 100ML IV BAG ONE (16:43)
[2024-08-20] MEDS: ISOVUE-300 61% 100ML VIAL As Ordered ONE (17:04)
[2024-08-20] MEDS ORDERED: ONDANSETRON 4MG 2ML VIAL IV PRN (17:30)
[2024-08-20] MEDS ORDERED: oxyCODONE 5MG TAB PO PRN (17:30)
[2024-08-20] MEDS ORDERED: fentaNYL 100 MCG/2 ML INJECTION IV PRN (17:30)
[2024-08-20] MEDS ORDERED: LR 1,000 ML IV SCH (17:30)
[2024-08-20] MEDS ORDERED: HYDROMORPHONE HCL 0.5 MG/ 0.5 ML SYRINGE IV PRN (17:30)
[2024-08-20 18:30] VITALS: BP 133/66; TEMP 97.2; O2SAT 96
== END 2024-08-20 19:07 | disposition home or self-care (01) ==
LOC: M SDC 12:39
PROVIDERS: ATTEND Internal Medicine Gastroenterology
DX: K80.50 Calculus of bile duct without cholangitis or cholecystitis without obstruction (principal); K83.8 Other specified diseases of biliary tract; R74.8 Abnormal levels of other serum enzymes; Z90.49 Acquired absence of other specified parts of digestive tract; Z88.0 Allergy status to penicillin; Z88.1 Allergy status to other antibiotic agents; Z88.8 Allergy status to other drugs, medicaments and biological substances
CPT/HCPCS: 36415; 43264; 43274; 74330; 80048; 85027; 93005; C1769; C1889; C2625; J0131; J1100; J2250; J2405; J3010; Q9967

== ENCOUNTER → 2024-09-21 | Outpatient (CLI) | payer MEDICARE | LOC: M RAD 08:28 | PROVIDERS: ATTEND Internal Medicine Gastroenterology | DX: T18.3XXA Foreign body in small intestine, initial encounter (principal) ==

== ENCOUNTER → 2025-01-19 | Outpatient (REF) | payer MEDICARE | LOC: M SMT 13:27 | PROVIDERS: ATTEND Physician Assistant | DX: Z85.51 Personal history of malignant neoplasm of bladder (principal) ==

== ENCOUNTER → 2025-02-01 | Outpatient (REF) | payer MEDICARE | LOC: M LABSMT 09:52 | PROVIDERS: ATTEND Physician Assistant | DX: C61 Malignant neoplasm of prostate (principal) ==

== ENCOUNTER → 2025-02-26 | Outpatient (REF) | payer MEDICARE ==
[2025-02-26 13:32] LABS: HEMATOCRIT 38.1 % (42.0-52.0); HEMOGLOBIN 11.8 g/dl (13.5-17.5); MEAN CORPUSCULAR HEMOGLOBIN 26.6 pg (27.0-33.0); MEAN CORPUSCULAR VOLUME 85.8 fl (80.0-96.0); PLATELET COUNT, AUTOMATED 338 10^3/uL (150-450); RED BLOOD COUNT 4.44 10^6/uL (4.30-6.10); WHITE BLOOD COUNT 9.8 10^3/uL (4.0-10.0)
[2025-02-26 13:40] LABS: AMORPHOUS SEDIMENT SMALL (NEGATIVE); APPEARANCE, URINE CLOUDY (CLEAR); BACTERIA, URINE AUTO 1+ (NEGATIVE); BILIRUBIN, URINE AUTO NEGATIVE (NEGATIVE); BLOOD, URINE BLOOD 1+ (NEGATIVE); COLOR, URINE YELLOW (YELLOW); GLUCOSE, URINE (UA) AUTO NEGATIVE (NEGATIVE); KETONE, URINE AUTO NEGATIVE (NEGATIVE); LEUKOCYTE ESTERASE, URINE AUTO 3+ (NEGATIVE); NITRITE, URINE AUTO POSITIVE (NEGATIVE); PROTEIN, URINE AUTO NEGATIVE (NEGATIVE); RBC, URINE AUTO 3 /HPF (0-3); SQUAMOUS EPITHELIAL CELL UR AU 2 /HPF (0-6); UROBILINOGEN, URINE AUTO 0.2 mg/dL (0.0-2.0); WBC, URINE AUTO 1 /HPF (0-3)
[2025-02-26 14:00] LABS: PROSTATIC SPECIFIC AG MONITOR 0.04 NG/ML (< 4.00)
[2025-02-26 14:02] LABS: BLOOD UREA NITROGEN 15 MG/DL (9-23); CALCIUM LEVEL 9.7 MG/DL (8.3-10.6); CARBON DIOXIDE LEVEL 28 MMOL/L (20-31); CHLORIDE LEVEL 101 MMOL/L (98-107); CREATININE FOR GFR 0.88 MG/DL (0.70-1.30); GLOMERULAR FILTRATION RATE > 60.0 (>42); GLUCOSE, FASTING 105 MG/DL (74-106); POTASSIUM SERUM 4.4 MMOL/L (3.5-5.1); SODIUM LEVEL 136 MMOL/L (136-145)
== END ==
LOC: M SFHCADAM 09:22
PROVIDERS: ATTEND Physician Assistant Medical
DX: Z85.51 Personal history of malignant neoplasm of bladder (principal); Z85.46 Personal history of malignant neoplasm of prostate

== ENCOUNTER → 2025-03-09 | Outpatient (REF) | payer MEDICARE ==
[2025-03-09 13:57] LABS: ALBUMIN 3.1 G/DL (3.2-5.2); ALKALINE PHOSPHATASE 114 U/L (40-129); ALT/SGPT 14 U/L (7.0-40); AST/SGOT < 8 U/L (<34); BILIRUBIN,TOTAL 0.4 MG/DL (0.3-1.2); BLOOD UREA NITROGEN 16 MG/DL (9-23); CALCIUM LEVEL 9.5 MG/DL (8.3-10.6); CARBON DIOXIDE LEVEL 28 MMOL/L (20-31); CHLORIDE LEVEL 103 MMOL/L (98-107); CHOLESTEROL LEVEL 107 MG/DL (<200); CHOLESTEROL RISK RATIO 2.84 (<5); CREATININE FOR GFR 0.82 MG/DL (0.70-1.30); GLOMERULAR FILTRATION RATE 89.4 (>42); GLUCOSE, FASTING 95 MG/DL (74-106); HDL CHOLESTEROL 37.6 MG/DL (>40); IRON (FE) 27 UG/DL (65-175); NON-HDL-C 69.4 MG/DL; PERCENT SATURATION 10.9 % (19.7-50.0); POTASSIUM SERUM 4.4 MMOL/L (3.5-5.1); SODIUM LEVEL 139 MMOL/L (136-145); TOTAL IRON BINDING CAPACITY 247 UG/DL (250-425); TOTAL PROTEIN 7.7 G/DL (5.7-8.2); TRIGLYCERIDES LEVEL 52 MG/DL (<150)
[2025-03-09 13:58] LABS: FERRITIN 70.9 NG/ML (10.5-307.3)
[2025-03-09 13:59] LABS: FOLATE 13.5 NG/ML (>5.4); VITAMIN B12 LEVEL 423 PG/ML (211-911)
[2025-03-09 14:05] LABS: HEMOGLOBIN A1c 5.9 % (4.0-6.0)
== END ==
LOC: M SFHCADAM 09:37
PROVIDERS: ATTEND Physician Assistant Medical
DX: E11.9 Type 2 diabetes mellitus without complications (principal); D50.9 Iron deficiency anemia, unspecified; G62.9 Polyneuropathy, unspecified

== ENCOUNTER → 2025-08-19 | Outpatient (REF) | payer MEDICARE, MEDICAID ==
[~2025-08-19] MED LIST changes: +ALLO10TA PO; +OCUVTAB4 PO; +ZANU80CA PO
[2025-08-19 14:05] LABS: CREATININE, URINE 44.8 MG/DL
[2025-08-19 14:06] LABS: MALB URINE SIEMENS 15.0 MG/L; MAU/CREAT RATIO 33.4 MCG/MG (0.0-30.0)
[2025-08-19 14:09] LABS: FREE T4 1.2 NG/DL (0.89-1.76); TOTAL 25(OH) VITAMIN D 45.4 NG/ML (20.0-100.0)
[2025-08-19 16:34] LABS: ESTIMATED AVERAGE GLUCOSE 128.0 MG/DL (60-110)
== END ==
LOC: M SFHCADAM 08:51
PROVIDERS: ATTEND Physician Assistant Medical
DX: E11.9 Type 2 diabetes mellitus without complications (principal); G62.9 Polyneuropathy, unspecified; Z79.899 Other long term (current) drug therapy